=== PATIENT | female | born 1940 | race Caucasian/White ===

== ENCOUNTER 2020-11-12 12:44 | Inpatient (IN) | payer MEDICARE, MEDICAID, SELFPAY ==
[2020-11-12] VITALS (12 sets, daily range): BP systolic 148–156; BP diastolic 62–84; PULSE 63–89; RESP 16–32; TEMP 36.7–37.9; O2SAT 96–100; BMI 23.3
--- NOTE | 2020-11-12 13:24 | W.ED.FEMALGU ---
HPI - Female Genitourinary General: Chief complaint: Urogenital-Female Stated complaint: Abd pain Time Seen by Provider: 11/12/20 13:16 History of Present Illness: HPI Narrative: 80 year old female on chronic anticoagulation with coumadin in for vaginal bleeding or hematuria. The source is unclear. Was recently seen by PCP and today urine culture was negative. She had an INR >8.0. The patient does not have JAPANESE for her first language and initially family helps translate but language barrier exists. MD elicited complaint: UTI , vaginal bleeding and pelvic pain Pertinent past history: recurrent UTIs Severity: similar to previous episodes Vaginal discharge: none Vaginal bleeding: scant Associated symptoms: Reports abdominal pain; Deny short of breath, fevers/chills, headache(s), nausea, syncope or vaginal discharge Review of Systems Const: Denies: fever(s) or chills Card: Denies: chest pain, palpitations or syncope GI: Reports: abdominal pain; Denies: nausea : Reports: dysuria, hematuria, change in menstrual flow and pelvic pain; Denies: vaginal discharge Neuro: Denies: headache(s) Physical Exam Const: COMMON NORMALS: no acute distress, patient oriented x3, no limitations and alert ORIENTATION/CONSCIOUSNESS: Yes oriented to time HENMT: COMMON NORMALS: normocephalic HEAD & SCALP: normal to inspection and normocephalic Neck/C-Spine: COMMON NORMALS: full ROM GENERAL: Yes normal visual inspection Chest: COMMONS NORMALS: normal inspection of the chest CHEST: Yes abnormal inspection of the chest Resp: COMMON NORMALS: normal respiratory effort EFFORT & INSPECTION: Yes able to speak in complete sentences, Yes symmetric chest movement and No respiratory distress Cardio: COMMON NORMALS: regular rate, regular rhythm, S1 normal heart sound present and S2 normal heart sound present RATE: regular rate RHYTHM: regular rhythm HEART SOUNDS: S1 normal heart sound present and S2 normal heart sound present GI: INSPECTION: Yes normal to inspection AUSCULTATION: Yes normoactive bowel sounds Neuro: COMMON NORMALS: patient oriented x3 SENSORIUM/ORIENTATION: Yes alert and Yes oriented to time CRANIAL NERVES: Yes CN normal except as noted COORDINATION/BALANCE: [id number]-[id number] test normal SPEECH: speech normal GAIT: Yes Normal gait present SENSORY EXAM: Yes extremities COORDINATION: [id number] test normal Skin: COMMON NORMALS: no rashes or lesions noted GENERAL SKIN EXAM: no rashes or lesions noted RASHES: no rashes Course Vital Signs: Vital signs: Vital Signs Temperature 98.1 F 11/12/20 13:01 Pulse Rate 63 11/12/20 13:01 Respiratory Rate 32 H 11/12/20 15:04 Blood Pressure 150/80 11/12/20 13:01 Pulse Oximetry 97 11/12/20 15:04 MDM - Female MDM Narrative: Medical decision making narrative: 80-year-old female in with concerns of vaginal bleeding or hematuria. We'll try to get the language line on the phone to help us clarify some details in the history secondary to the language barrier. I did talk to her primary care physician he relates some helpful information. Will check blood count, INR and CT scan of her abdomen and pelvis and pelvic examination and cath UA. Patient has gross hematuria as well as abnormal CT scan showing mild diffuse thickening of the cecum measuring up to 7 mm colitis versus early neoplasm is in the differential. The patient's hemoglobin came back at 7 and her INR at 6. She'll be given some vitamin K and transfused and then we talked about admitting the patient to the hospital for further workup. Lab Data: Labs: Lab Results 11/12/20 11/12/20 11/12/20 Range/Units 14:26 14:26 14:26 WBC 6.5 (4.0-10.0) 10^3/ uL RBC 2.59 L (4.1-5.3) 10^6/u L Hgb 7.1 L (11.5-15.3) g/dL Hct 23.8 L (37.0-47.0) % MCV 91.9 (81-99) fL MCH 27.4 L (28.0-34.0) pg MCHC 29.8 L (30.0-36.0) g/dL RDW 17.3 H (12.1-15.1) % Plt Count 113 L (130-400) 10^3/c mm MPV 11.1 H (7.4-10.4) fL Neut % (Auto) 74.6 % Lymph % (Auto) 18.3 % [place] % (Auto) 6.3 % Eos % (Auto) 0.0 % Baso % (Auto) 0.2 % Neut # (Auto) 4.86 (1.8-7.7) 10^3/u L Lymph # (Auto) 1.2 (0.8-4.8) 10^3/u L [place] # (Auto) 0.4 (0.2-0.9) 10^3/u L Eos # (Auto) 0.0 (0.0-0.8) 10^3/u L Baso # (Auto) 0.0 (0.0-0.1) 10^3/u L Nucleated RBC % (a uto) 0 % Nucleated RBCs # 0.0 /100WBC PT 58.60 H (12.1-14.9) SECO NDS INR 6.36 H* (0.8-1.2) Sodium 141 (136-145) mmol/L Potassium 3.9 (3.5-5.1) mmol/L Chloride 109 H (98-107) mmol/L Carbon Dioxide 24 (22-29) mmol/L Anion Gap 11.9 (5-19) BUN 29 H (8-23) mg/dL Creatinine 0.9 (0.5-0.9) mg/dL GFR Calculation Not Reportable Glucose 135 H (65-115) mg/dL Calculated Osmolal ity 300 H (285-295) mOsm/k g Calcium 8.4 L (8.5-10.5) mg/dL Total Bilirubin 1.5 H (0.15-1.2) mg/dL AST 23 (0-32) U/L ALT 14 (0-33) U/L Alkaline Phosphata se 81 (35-105) IU/L Total Protein 6.9 (6.6-8.7) g/dL Albumin 2.6 L (3.5-5.2) g/dL Globulin 4.3 (1.3-4.6) g/dL Urine Color (Yellow) Urine Appearance (CLEAR) Urine pH Ur Specific Gravit y Urine Protein Urine Glucose (UA) Urine Ketones Urine Blood Urine Nitrate Urine Bilirubin Urine Urobilinogen Ur Leukocyte Siobhan ase Urine RBC (0-2) /hpf Urine WBC (0-5) /hpf Ur Squamous Epith Cells (0-5) /hpf Amorphous Sediment Urine Bacteria (NONE) /hpf 11/12/ Range/Units 14:28 WBC (4.0-10.0) 10^3/ uL RBC (4.1-5.3) 10^6/u L Hgb (11.5-15.3) g/dL Hct (37.0-47.0) % MCV (81-99) fL MCH (28.0-34.0) pg MCHC (30.0-36.0) g/dL RDW (12.1-15.1) % Plt Count (130-400) 10^3/c mm MPV (7.4-10.4) fL Neut % (Auto) % Lymph % (Auto) % [place] % (Auto) % Eos % (Auto) % Baso % (Auto) % Neut # (Auto) (1.8-7.7) 10^3/u L Lymph # (Auto) (0.8-4.8) 10^3/u L [place] # (Auto) (0.2-0.9) 10^3/u L Eos # (Auto) (0.0-0.8) 10^3/u L Baso # (Auto) (0.0-0.1) 10^3/u L Nucleated RBC % (a uto) % Nucleated RBCs # /100WBC PT (12.1-14.9) SECO NDS INR (0.8-1.2) Sodium (136-145) mmol/L Potassium (3.5-5.1) mmol/L Chloride (98-107) mmol/L Carbon Dioxide (22-29) mmol/L Anion Gap (5-19) BUN (8-23) mg/dL Creatinine (0.5-0.9) mg/dL GFR Calculation Glucose (65-115) mg/dL Calculated Osmolal ity (285-295) mOsm/k g Calcium (8.5-10.5) mg/dL Total Bilirubin (0.15-1.2) mg/dL AST (0-32) U/L ALT (0-33) U/L Alkaline Phosphata se (35-105) IU/L Total Protein (6.6-8.7) g/dL Albumin (3.5-5.2) g/dL Globulin (1.3-4.6) g/dL Urine Color Red (Yellow) Urine Appearance Bloody A (CLEAR) Urine pH Not Reportable Ur Specific Gravit y Not Reportable Urine Protein Not Reportable Urine Glucose (UA) Not Reportable Urine Ketones Not Reportable Urine Blood Not Reportable Urine Nitrate Not Reportable Urine Bilirubin Not Reportable Urine Urobilinogen Not Reportable Ur Leukocyte Siobhan ase Not Reportable Urine RBC Too numerous to c nt H (0-2) /hpf Urine WBC None (0-5) /hpf Ur Squamous Epith Cells None (0-5) /hpf Amorphous Sediment Not Reportable Urine Bacteria 1+ H (NONE) /hpf Discharge Plan Discharge Patient Disposition: Admitted As Inpatient Clinical Impression: Acute blood loss anemia, Colitis with rectal bleeding Condition: Stable Coding Level of Care Code ED Environmental Geologist for Chg Fwd Exam Comprehensive
--- NOTE | 2020-11-12 13:41 | CT_ITS ---
WS: [id number] CT ABDOMEN AND PELVIS WITH CONTRAST HISTORY: Vaginal bleeding TECHNIQUE: Imaging performed of the abdomen and pelvis with IV contrast. Single phase imaging of the abdomen. Coronal and sagittal reformats are submitted. All CT scans at [facility] use at least one of these dose optimization techniques: automated exposure control; mA and/or kV adjustment per patient size (includes targeted exams where dose is matched to clinical indication); or iterativ e reconstruction. IV CONTRAST: Omnipaque 300; 95 mL IV. Oral contrast: No DLP: 596.54 mGy.cm COMPARISON: None available. Lower thorax: Mild edema at the lung bases and dependent changes. Small bilateral pleural effusions. Severe cardiomegaly. There is marked enlargement of the LEFT atrium. No hiatal hernia. Liver/biliary system: Scattered hypodensities in the liver with the largest measuring 8 mm. Probably representing cysts. Gallbladder: Status post cholecystectomy. Pancreas: Normal. Spleen: Normal. Adrenal glands: Normal. Right kidney: Normal. Left kidney: Cortical thinning and mild atrophy of the LEFT kidney. No obstruction or mass. Aorta: Mild atherosclerosis with no aneurysm. Lymphadenopathy: None. Free fluid: None. GI tract: Diverticulosis in the distal colon with no evidence for acute diverticulitis. Mild cecal wa ll thickening measuring 7 mm. Abdominal wall: Unremarkable abdominal wall. No hernia. Pelvis: Atrophic uterus. Uterus is midline.. Minimally distended endometrium. Large dense calcifications in the urinary bladder measuring 2.4 x 1.9 cm. Bones: Severe degenerative disc disease at L4-5. CT/CT abdomen pelvis w con* [id number] IMPRESSION: 1. Atrophic uterus with no pelvic mass identified. 2. Large bladder calcifications in their entirety measuring 2.4 x 1.9 cm. 3. Sigmoid diverticulosis without acute diverticulitis. 4. Prior cholecystectomy. 5. Severe cardiomegaly and LEFT atrial enlargement. 6. Small bilateral pleural effusions. 7. Mild diffuse thickening of the cecum measuring up to 7 mm. Colitis versus e laya neoplasm. No obstruction.
[2020-11-12 14:54] LABS: Basophils % 0.2 %; Hematocrit 23.8 % (37.0-47.0); Hemoglobin 7.1 g/dL (11.5-15.3); Lymphocytes # 1.2 10^3/uL (0.8-4.8); Lymphocytes % 18.3 %; Mean Corpuscular HGB Conc 29.8 g/dL (30.0-36.0); Mean Corpuscular Hemoglobin 27.4 pg (28.0-34.0); Mean Corpuscular Volume 91.9 fL (81-99); Mean Platelet Volume 11.1 fL (7.4-10.4); Monocytes # 0.4 10^3/uL (0.2-0.9); Monocytes % 6.3 %; Neutrophils # 4.86 10^3/uL (1.8-7.7); Neutrophils % 74.6 %; Nucleated Red Blood Cells % 0 %; Platelet Count 113 10^3/cmm (130-400); Red Blood Count 2.59 10^6/uL (4.1-5.3); Red Cell Distribution Width 17.3 % (12.1-15.1); White Blood Count 6.5 10^3/uL (4.0-10.0)
[2020-11-12] MEDS: fentaNYL 50 mcg/mL INJ 2mL IVP (15:04)
[2020-11-12 15:10] LABS: Add Urine Microscopic? YES; Urine Appearance Bloody (CLEAR)
[2020-11-12 15:11] LABS: Alanine Aminotransferase 14 U/L (0-33); Albumin Level 2.6 g/dL (3.5-5.2); Alkaline Phosphatase 81 IU/L (35-105); Anion Gap 11.9 (5-19); Aspartate Amino Transferase 23 U/L (0-32); Blood Urea Nitrogen 29 mg/dL (8-23); Calcium 8.4 mg/dL (8.5-10.5); Carbon Dioxide 24 mmol/L (22-29); Chloride 109 mmol/L (98-107); Creatinine Clr Calc Pharmacy 47.6902; Globulin 4.3 g/dL (1.3-4.6); Glucose 135 mg/dL (65-115); Osmolality Calculated 300 mOsm/kg (285-295); Potassium 3.9 mmol/L (3.5-5.1); Sodium 141 mmol/L (136-145); Total Bilirubin 1.5 mg/dL (0.15-1.2); Total Protein 6.9 g/dL (6.6-8.7)
[2020-11-12 15:11] LABS: Add Urine Culture? Yes; Bacteria Urine 1+ /hpf; RBC Urine TOO NUMEROUS TO CNT /hpf (0-2); Urine Color Red (Yellow)
[2020-11-12] MEDS: iohexol 300 mg/mL 100 mL Btl IV (15:24)
[2020-11-12 15:28] LABS: INR 6.36 (0.8-1.2)
[2020-11-12] MEDS: piperacillin-tazobactam 3.375 GM in sodium chloride 0.9% (plus) 50 ML IV (19:23)
[2020-11-12] MEDS: phytonadione (ADULT) 10 mg/mL Ampule 1 mL 5 MG PO (19:24)
--- NOTE | 2020-11-12 19:39 | PM.HP ---
Providers/Chief Complaint Admitting Physician: Dionne Mosqueda MD Primary Care Provider: Lloyd Stanley DO Chief Complaint: Abd pain History of Present Illness Zonia Saab is a 80 year old [place]-speaking female presented to the hospital with chief complaint blood in urine. Sister is at the bedside who is endorsing that for last few days she has been experiencing a lot of blood in urine, history is limited because of language barrier I have tried my best to use phlebotomy lab assistant, sister is able to tell me that at baseline she is not very active she is not able to bear weight her legs are swollen no recent complaints of chest pain, vomiting, fever, shortness of breath, she takes Coumadin for atrial fibrillation, has history of diabetes and hypertension. Diagnostics in the ER revealed normal hemodynamics, supratherapeutic INR 6.3, hemoglobin 7.1, she was getting first unit of PRBC by the time I saw her I also requested 1 unit of FFP, she received vitamin K in the ER, she was hemodynamically stable, Kcentra was not used, urinalysis showing hematuria, CT abdomen revealed bilateral pleural effusion, cecum thickening colitis versus neoplasm without obstruction, diverticulosis, bladder calcifications 2.4 x 1.9 cm, scattered hypodensities in the liver Review of Systems Const: Denies: fever(s) Eyes: Denies: change in vision ENMT: Denies: throat pain Card: Denies: chest pain Resp: Denies: dyspnea GI: Denies: abdominal pain : Reports: other (Hematuria) Musc: Reports: extremity pain and extremity swelling Skin/Breast: Denies: rash Neuro: Denies: headache(s) Psych: Denies: anxiety Endo: Denies: polyuria Arjun/Lymph: Denies: easy bruising All/Imm: Denies: urticaria Medications/Allergies Home Medications Medication Instructions Recorded Confirmed Last Taken Type digoxin 125 mcg PO DAILY 11/12/20 11/12/20 11/11/20 History hydrochlorothiazide 50 mg PO DAILY PRN 11/12/20 11/12/20 Unknown History losartan 100 mg PO BID 11/12/20 11/12/20 11/11/20 History metformin 500 mg PO DAILY 11/12/20 11/12/20 11/11/20 History nitrofurantoin monohyd/m-cryst 100 mg PO BID 11/12/20 11/12/2020 History Allergies Allergy/AdvReac Type Severity Reaction Status Date / Time Cipro Allergy Unknown Uncoded 03/12/20 18:30 PFSH Acute PFSH: Medical History (Updated 11/12/20 @ 19:46 by Faith Soto MD) Atrial fibrillation Chronic anticoagulation Hypertension Type 2 diabetes mellitus Surgical History (Updated 11/12/20 @ 19:46 by Faith Soto MD) Hx of cholecystectomy Family History (Updated 11/12/20 @ 23:04 by Faith Soto MD) Other Family history non-contributory Social History (Updated 11/12/20 @ 23:04 by Faith Soto MD) Smoking and tobacco status: never smoked Alcohol intake: never Substance/Drug Use: never Household members: family Housing: House Vitals/I&O/Wt Last Vital Signs Temp 98.8 F 11/12/20 18:21 Pulse 74 11/12/20 18:21 Resp 18 11/12/20 18:21 BP 154/65 11/12/20 18:21 Pulse Ox 98 11/12/20 18:21 11/12/20 11/12/20 11/12/20 06:59 14:59 22:59 Intake Total 0 / 0 Balance 0 / 0 Weight last 48 hrs Weight 63.503 kg Physical Exam Narrative: EXAM NARRATIVE: Very flair elderly female currently in comfortably in her bed Blood transfusion at the bedside running, however vitals are stable S1, S2 variable no murmur appreciated No signs of heart failure Abdomen soft nontender bowel sound present Neurologically nonfocal exam EOMI, PERRLA Awake alert oriented x3 GCS 15 Lower extremity bilateral edema 2+ Multiple petechiae and bruises of lower extremities Bilateral breath sounds without adventitious rhonchi or crackles Limited psych evaluation Data : 11/12/20 14:26 11/12/20 14:26 A&P Assessment and plan (1) Acute blood loss anemia: Status: Acute (2) Colitis with rectal bleeding: Status: Acute (3) Hematuria: Status: Acute Additional A&P Information Acute blood loss anemia due to hematuria UA revealed hematuria, patient is hypertensive, would request protein/creatinine ratio, bladder calcification seen on CT abd Patient currently getting first unit of PRBc Considering supratherapeutic INR I highly doubt urgent cystoscopy indication, kindly consult Dr. Vidal in the morning Currently on Zosyn for possible colitis however cecal mass has not been ruled out, she will need colonoscopy, She will need histopathological diagnosis of bladder to rule out malignancy, liver showing multiple cysts as well Supratherapeutic INR Hold Coumadin, obtain digoxin level, I will give her 1 unit FFP to reverse coagulopathy because of hematuria, currently hemodynamically stable, hold off on Kcentra for now I have read out she will go for colonoscopy or cystoscopy with supratherapeutic INR, A. fib without RVR Hold Coumadin and digoxin Rate controlled Would use metoprolol if needed for RVR Hypertension: I would avoid adding losartan for now, hold hydrochlorothiazide Considering hematuria hemoglobin 7.1 I would be okay with a blood pressure range 100 4250 for now Type 2 diabetes: Low-dose sliding scale, Full code discussed with the patient and sister DVT prophylaxis SCDs Clear liquid diet for now Attestations Medical Necessity Statement*: Anticipating stay in the hospital cross more than 2 midnights continued blood transfusion for supratherapeutic INR coagulopathy and hematuria Time Spent in Patient Care: (>than 50% of time spent in counselling and/or direct pt care on unit). 40mins Coding Level of Care Code Acute Automatic Mounter for [employer] Fwdaisy Diagnoses Acute blood loss anemia D62 Colitis with rectal bleeding K52.9; K62.5 Hematuria R31.9
[2020-11-13] VITALS (12 sets, daily range): BP systolic 117–160; BP diastolic 60–77; PULSE 63–79; RESP 16–20; TEMP 36.3–37.4; O2SAT 94–99
[2020-11-13 00:06] LABS: Digoxin 1.4 ng/mL (0.6-1.2)
--- NOTE | 2020-11-13 01:51 | PC.NURSE ---
Assumed pt care at this time. Pt is resting in bed.
[2020-11-13] MEDS: piperacillin-tazobactam 3.375 GM in sodium chloride 0.9% (plus) 50 ML IV ×3 (04:28→20:01)
[2020-11-13 06:02] LABS: Basophils % 0.2 %; Eosinophils % 0.2 %; Hematocrit 24.4 % (37.0-47.0); Hemoglobin 7.5 g/dL (11.5-15.3); Lymphocytes # 1.2 10^3/uL (0.8-4.8); Lymphocytes % 19.1 %; Mean Corpuscular HGB Conc 30.7 g/dL (30.0-36.0); Mean Corpuscular Hemoglobin 27.5 pg (28.0-34.0); Mean Corpuscular Volume 89.4 fL (81-99); Mean Platelet Volume 10.3 fL (7.4-10.4); Monocytes # 0.4 10^3/uL (0.2-0.9); Monocytes % 6.2 %; Neutrophils # 4.77 10^3/uL (1.8-7.7); Neutrophils % 73.5 %; Nucleated Red Blood Cells % 0 %; Platelet Count 106 10^3/cmm (130-400); Red Blood Count 2.73 10^6/uL (4.1-5.3); Red Cell Distribution Width 16.6 % (12.1-15.1); White Blood Count 6.5 10^3/uL (4.0-10.0)
[2020-11-13 06:30] LABS: Anion Gap 14.6 (5-19); Blood Urea Nitrogen 23 mg/dL (8-23); Calcium 8.3 mg/dL (8.5-10.5); Carbon Dioxide 23 mmol/L (22-29); Chloride 109 mmol/L (98-107); Creatinine Clr Calc Pharmacy 47.6902; Glucose 110 mg/dL (65-115); Osmolality Calculated 300 mOsm/kg (285-295); Potassium 3.6 mmol/L (3.5-5.1); Sodium 143 mmol/L (136-145)
[2020-11-13 06:52] LABS: INR 1.92 (0.8-1.2)
--- NOTE | 2020-11-13 09:44 | XRR_ITS ---
PROCEDURE INFORMATION: Exam: XR Chest, 1 View Exam date and time: 11/13/2020 9:44 AM Age: 80 years old Clinical indication: Other: Low oxygen TECHNIQUE: Imaging protocol: XR of the chest Views: 1 view. COMPARISON: No relevant prior studies available. FINDINGS: Lungs: Emphysematous change , interstitial prominence, and bilateral lower lobe airspace disease. Pleural space: Left pleural effusion without obscuration of the left hemidiaphragm. Heart/Mediastinum: Cardiomegaly. Bones/joints: Degenerative change. XR/XR chest 1V portable [id number] IMPRESSION: 1. Emphysematous change , interstitial prominence, and bilateral lower lobe airspace disease. 2. Left pleural effusion without obscuration of the left hemidiaphragm.
[2020-11-13 10:32] LABS: Glucose Point of Care 221 mg/dL (70-110)
--- NOTE | 2020-11-13 11:00 | PM.PN ---
Subjective Subjective: Interval history: She states she is doing all right. She is currently on oxygen mask oxygen. Breathing is comfortable. Sister states she normally does not use supplemental oxygen at home. Sister states for hematuria on Tuesday her PCP prescribed her a course of antibiotic. Both deny that she has ever had a colonoscopy. We discussed colonic thickening found on CT. Her sister reports patient has had issues with swallowing, takes her long time to swallow water, she holds it in her mouth for a while before swallowing. 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 Vitals/I&O/Wt Last Vital Signs Temp 98.3 F 11/13/20 07:15 Pulse 68 11/13/20 07:15 Resp 20 H 11/13/20 07:15 BP 144/69 11/13/20 07:15 Pulse Ox 96 11/13/20 06:15 11/12/20 11/13/20 11/13/20 22:59 06:59 14:59 Intake Total 350 / 350 366 / 716 350 / 350 Output Total 100 / 100 Balance 350 / 350 266 / 616 350 / 350 Weight last 48 hrs Weight 63.503 kg Physical Exam Const: COMMON NORMALS: no acute distress and patient oriented x3 HENMT: COMMON NORMALS: oropharynx normal Neck/C-Spine: COMMON NORMALS: no JVD Resp: COMMON NORMALS: normal respiratory effort and clear to auscultation bilaterally AUSCULTATION: clear to auscultation bilaterally Cardio: COMMON NORMALS: no JVD, regular rhythm, S1 normal heart sound present, S2 normal heart sound present and No murmurs present (Cardio) RHYTHM: regular rhythm HEART SOUNDS: S1 normal heart sound present and S2 normal heart sound present GI: COMMON NORMALS: Normal to inspection, nondistended, normoactive bowel sounds present, Soft to palpation and non-tender PALPATION: Yes Soft to palpation Extremity: COMMON NORMALS: no joint enlargement and no pedal edema Neuro: COMMON NORMALS: patient oriented x3 and moves all extremities Skin: COMMON NORMALS: no rashes or lesions noted GENERAL SKIN EXAM: no rashes or lesions noted Urinary Catheter Management^: [place]: Cath Placed During This Visit: yes Reason for Continuing Indwelling Catheter: Other Urinary Catheter Date of Insertion: 11/13/20 Urinary Catheter Time of Insertion: 02:35 Data : 11/13/20 05:02 11/13/20 05:02 A&P Assessment and plan (1) Aspiration pneumonia: Reportedly choked after eating breakfast this morning. Hypoxic. Requiring 8 L of oxygen, currently with simple mask. Not normally using supplemental oxygen. Discussed with her and her sister findings of chest x-ray including appearance of emphysema. She is a never smoker. She does have recurrent difficulties with swallowing for sister however since she has had a stroke. Currently on Zosyn. Continue. ST assessment. Aspiration precautions. Status: Acute (2) Acute respiratory failure with hypoxia: As above. Status: Acute (3) Acute blood loss anemia: Status post 2 units PRBC. Hypoxic as above. 20 mg Lasix IV. Monitor hemoglobin. Coumadin on hold. Anemia with hematuria, possible cystitis for which he was prescribed antibiotic by PCP on Tuesday. Status: Acute (4) Colitis with rectal bleeding: Hemoccult had been requested. Discussed findings of CT scan with thickening of cecum. Currently on Zosyn. Will need colonoscopy after empiric treatment for possible colitis. Status: Acute (5) Hematuria: Possible cystitis for which he was prescribed antibiotic by PCP on Tuesday. Will request UA and culture results. Continue Zosyn. Hematuria currently appears mostly resolved, and likely was related to cystitis and elevated INR. Consider urological evaluation once issues with hypoxia resolve. Status: Acute (6) Cardiomegaly: Assess TTE Status: Acute Additional A&P Information A. fib without RVR Hold Coumadin and digoxin. Recheck INR. Dig level. Hypertension: I would avoid adding losartan for now, hold hydrochlorothiazide Type 2 diabetes: Low-dose sliding scale, Full code DVT prophylaxis SCDs Attestations Medical Necessity Statement*: Continue admission for assessment management of acute hypoxic respiratory failure, aspiration pneumonia, acute blood loss anemia. Coding Level of Care Code Acute Management Consulting for [facility] Fwd Diagnoses Aspiration pneumonia J69.0 Acute respiratory failure with hypoxia J96.01 Acute blood loss anemia D62 Colitis with rectal bleeding K52.9; K62.5 Hematuria R31.9 Cardiomegaly I51.7
--- NOTE | 2020-11-13 11:06 | USCV_ITS ---
Zonia Saab Age: 80 Gender: F : 1940 Exam Date: 11/13/2020 11:26 Ordering Phys: Elie Olson MD Technologist: Sharron Mixon Exam Location: [facility] [place] Indication: CARDIOMEGALY BP: / HR: 69 Rhythm: Other Technical Quality: Adequate MEASUREMENTS (Male / Female) Normal Values 2D ECHO LV Diastolic Diameter PLAX 4.8 cm 4.2 - 5.9 / 3.9 - 5.3 cm LV Systolic Diameter PLAX 2.4 cm LV Chamber Size 3.9 cm IVS Diastolic Thickness 1.0 cm 0.6 - 1.0 / 0.6 - 0.9 cm IVS Systolic Thickness 1.3 cm LVPW Diastolic Thickness 1.3 cm 0.6 - 1.0 / 0.6 - 0.9 cm LVPW Systolic Thickness 1.7 cm RV Chamber Size 2.2 cm LVOT Diameter 2.0 cm LV Ejection Fraction 2D Teich 80.6 % LA Diameter 4.0 cm LA Width 6.4 cm LA Height 8.7 cm RA Width 2.1 cm RA Height 7.3 cm Aorta at Sinotubular Diameter 3.0 cm M-MODE LV Diastolic Diameter MM 4.1 cm 4.2 - 5.9 / 3.9 - 5.3 cm LV Systolic Diameter MM 2.5 cm LV Ejection Fraction MM Teich 70.0 % IVS Diastolic Thickness MM 1.1 cm 0.6 - 1.0 / 0.6 - 0.9 cm IVS Systolic Thickness MM 1.6 cm LVPW Diastolic Thickness MM 1.4 cm 0.6 - 1.0 / 0.6 - 0.9 cm LVPW Systolic Thickness MM 1.8 cm RV Diastolic Diameter MM 1.8 cm Aortic Annulus Diameter 3.1 cm LA Ao Ratio MM 1.7 MV E Point Septal Separation 0.4 cm DOPPLER AV Peak Velocity 171.0 cm/s LVOT Peak Velocity 106.0 cm/s AV Area Cont Eq vti 2.2 cm squared AV Area Cont Eq pk 1.9 cm squared MV Peak Velocity 253.0 cm/s MV Area PHT 1.0 cm squared Mitral E to A Ratio 248.2 MV E' Velocity 163.0 cm/s Mitral E to MV E' Ratio 6.6 Mitral E to LV E' Lateral Ratio 5.2 Mitral E to LV E' Septal Ratio 9.2 TR Peak Velocity 359.2 cm/s TR Peak Gradient 51.6 mmHg TR Mean Velocity 255.1 cm/s TR Mean Gradient 31.1 mmHg TR Velocity Time Integral 86.5 cm TV Peak E Velocity 59.0 cm/s Right Atrial Pressure 15.0 mmHg Pulmonary Artery Systolic Pressu 66.6 mmHg PV Peak Velocity 93.0 cm/s RV Acceleration Time 0.1 s RV Ejection Time 0.4 s RV AcT/ET 0.2 FINDINGS Left Ventricle Normal left ventricular size and systolic function with no regional wall motion abnormalities. LVEF is 55 to 60%. Diastolic function is indeterminate. Right Ventricle The right ventricle is grossly normal. Right Atrium The right atrium is normal in size. Left Atrium Left atrium is massively enlarged. 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 Mitral valve leaflets are heavily calcified. There is severe mitral stenosis with mitral valve area of 0.97 cm squared. Mean pressure gradient of 9 mmHg with peak gradient of 29 mmHg. There is mild to moderate mitral regurgitation also present. There is a small fluttering structure attached to the anterior mitral leaflet. This could be artifact/calcium or less likely vegetation. Clinical correlation is required. Aortic Valve Grossly normal. No evidence of significant aortic stenosis or regurgitation. Tricuspid Valve Grossly normal. Mild tricuspid regurgitation. RVSP is 65 mmHg. This is consistent with severe pulmonary hypertension. Severe elevation of right atrial pressure. RA pressure is 15 mmHg. Pulmonic Valve Not well-visualized. Status mild pulmonic regurgitation noted. Pericardium Normal pericardium without effusion. Aorta Normal ascending aorta dimension. CONCLUSIONS LV systolic function is normal with EF of 55 to 60%. Diastolic function is indeterminate. Left atrium is massively enlarged. 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 Heavily calcified leaflets. Severe mitral stenosis with mitral valve area of 0.97 cm squared is noted. Mean gradient across mitral valve is 9 mmHg. There is mild to moderate mitral regurgitation. There is a small fluttering structure attached to anterior mitral leaflet this could be artifact/calcium or less likely vegetation. Clinical correlation is required. Transesophageal echocardiogram can be performed further assess mitral valve. Severe pulmonary hypertension is present. Severely elevated RA pressure of 15 mmHg. Compared to prior echocardiogram from 04/30/2014, severe pulmonary hypertension is now present. Harvey Quintero MD (Electronically Signed) Final Date: 13 November 2020 17:45 S
[2020-11-13 11:10] LABS: Glucose Point of Care 119 mg/dL (70-110)
[2020-11-13 11:14] LABS: Glucose Point of Care 220 mg/dL (70-110)
[2020-11-13] MEDS: sodium chloride 0.9% (100 ml) 100 ML 125 ML (11:27)
[2020-11-13] MEDS: FUROsemide 10 mg/mL SDV 2mL 20 MG IVP (11:27)
[2020-11-13 18:32] LABS: Glucose Point of Care 133 mg/dL (70-110)
[2020-11-13] MEDS: morphine 4 mg/mL SDV 1 mL 2 MG IVP (22:08)
[2020-11-13 22:20] LABS: Glucose Point of Care 179 mg/dL (70-110)
[2020-11-14] VITALS (9 sets, daily range): BP systolic 114–177; BP diastolic 65–83; PULSE 58–91; RESP 18–40; TEMP 36.3–37.9; O2SAT 92–96
[2020-11-14 05:01] LABS: Basophils % 0.2 %; Hemoglobin 8.6 g/dL (11.5-15.3); Lymphocytes # 1.7 10^3/uL (0.8-4.8); Mean Corpuscular HGB Conc 30.7 g/dL (30.0-36.0); Mean Corpuscular Hemoglobin 27.5 pg (28.0-34.0); Mean Corpuscular Volume 89.5 fL (81-99); Mean Platelet Volume 10.5 fL (7.4-10.4); Monocytes # 0.4 10^3/uL (0.2-0.9); Monocytes % 4.9 %; Neutrophils # 6.55 10^3/uL (1.8-7.7); Neutrophils % 75.1 %; Nucleated Red Blood Cells % 0 %; Platelet Count 104 10^3/cmm (130-400); Red Blood Count 3.13 10^6/uL (4.1-5.3); Red Cell Distribution Width 17.5 % (12.1-15.1); White Blood Count 8.7 10^3/uL (4.0-10.0)
[2020-11-14 05:18] LABS: INR 1.39 (0.8-1.2)
[2020-11-14 05:34] LABS: Digoxin 0.9 ng/mL (0.6-1.2)
[2020-11-14 05:38] LABS: Alanine Aminotransferase 12 U/L (0-33); Albumin Level 2.4 g/dL (3.5-5.2); Alkaline Phosphatase 107 IU/L (35-105); Anion Gap 13.5 (5-19); Aspartate Amino Transferase 25 U/L (0-32); Blood Urea Nitrogen 25 mg/dL (8-23); Calcium 8.3 mg/dL (8.5-10.5); Carbon Dioxide 23 mmol/L (22-29); Chloride 113 mmol/L (98-107); Globulin 4.4 g/dL (1.3-4.6); Glucose 114 mg/dL (65-115); Osmolality Calculated 307 mOsm/kg (285-295); Potassium 3.5 mmol/L (3.5-5.1); Sodium 146 mmol/L (136-145); Total Protein 6.8 g/dL (6.6-8.7)
[2020-11-14] MEDS: piperacillin-tazobactam 3.375 GM in sodium chloride 0.9% (plus) 50 ML IV ×3 (05:44→18:57)
[2020-11-14 06:56] LABS: Glucose Point of Care 122 mg/dL (70-110)
[2020-11-14 12:01] LABS: Glucose Point of Care 209 mg/dL (70-110)
[2020-11-14] MEDS: bisacodyl 10 mg Supp PR (15:20)
[2020-11-14 17:15] LABS: Glucose Point of Care 164 mg/dL (70-110)
[2020-11-14] MEDS: polyethylene glycol 3350 Pkt 17 gm PO (17:57)
--- NOTE | 2020-11-14 18:13 | PM.PN ---
Subjective Subjective: Interval history: She is doing okay. Appetite seems to be doing all right. She has been having constipation. Denies abdominal pain. Breathing is comfortable with supplemental oxygen. Worked with speech therapy yesterday. This morning there is some return of hematuria. Vitals/I&O/Wt Last Vital Signs Temp 97.8 F 11/14/20 15:19 Pulse 61 11/14/20 16:53 Resp 18 11/14/20 15:19 BP 134/83 11/14/20 15:19 Pulse Ox 96 11/14/20 16:53 11/14/20 11/14/20 11/14/20 06:59 14:59 22:59 Intake Total 80 / 766 170 / 170 50 / 220 Output Total 150 / 850 Balance -70 / -84 170 / 170 50 / 220 Physical Exam Const: COMMON NORMALS: no acute distress ORIENTATION/CONSCIOUSNESS: Yes awake OTHER: Appears tired. HENMT: COMMON NORMALS: oropharynx normal Neck/C-Spine: COMMON NORMALS: no JVD Resp: COMMON NORMALS: normal respiratory effort and clear to auscultation bilaterally AUSCULTATION: clear to auscultation bilaterally and diminished lung sounds Cardio: COMMON NORMALS: no JVD, regular rhythm, S1 normal heart sound present, S2 normal heart sound present and No murmurs present (Cardio) RHYTHM: regular rhythm HEART SOUNDS: S1 normal heart sound present and S2 normal heart sound present GI: COMMON NORMALS: Normal to inspection, nondistended, normoactive bowel sounds present, Soft to palpation and non-tender PALPATION: Yes Soft to palpation Extremity: COMMON NORMALS: no joint enlargement and no pedal edema Neuro: COMMON NORMALS: moves all extremities Skin: COMMON NORMALS: no rashes or lesions noted GENERAL SKIN EXAM: no rashes or lesions noted Urinary Catheter Management^: Alegria: Cath Placed During This Visit: yes Reason for Continuing Indwelling Catheter: Accurate Measurement of Urinary Output in Critically Ill Patients Urinary Catheter Date of Insertion: 11/13/20 Urinary Catheter Time of Insertion: 02:35 Data : 11/14/20 04:43 11/14/20 04:43 Micro: Microbiology 11/14/20 10:27 Blood Culture - Preliminary Blood SPECIMEN COLLECTED 11/14/20 10:23 Blood Culture - Preliminary Blood SPECIMEN COLLECTED 11/12/20 14:28 Urine Culture - Final Urine,Clean Catch A&P Assessment and plan (1) Aspiration pneumonia: Oxygen requirement appears stabilized. Little bit better today at 4.5 L from 8 L yesterday. She is comfortable. Ate today. Was seen by ST with recommendation for dysphagia diet with pudding consistency liquid. Unfortunately MBS has not been available. FEES with limited study. Noted quite a bit of pooling in the valleculae. Is at risk of aspiration. Consider MBS once study is available. Discussed in detail with her and her daughter risk of aspiration. As well as suspicion of recurrent aspiration in the past, possibly leading to findings of chronic lung disease/emphysema. Discussed with her and her sister findings of chest x-ray including appearance of emphysema. She is a never smoker. She does have recurrent difficulties with swallowing for sister however since she has had a stroke. Currently on Zosyn. Continue. Continue ST. Aspiration precautions. Status: Acute (2) Acute respiratory failure with hypoxia: As above. Status: Acute (3) Hematuria: There is some return of hematuria this morning, despite decrease in INR. Hold off on resuming warfarin for now. Discussed manual irrigation with nursing staff. Monitor. Continue treatment of possible UTI/cystitis. Continue Zosyn. Consider urological evaluation once issues with hypoxia resolve. Status: Acute (4) Acute blood loss anemia: Status post 2 units PRBC on presentation. Monitor hemoglobin. Hematuria as above. Monitor hemoglobin. Coumadin on hold. Anemia with hematuria, possible cystitis for which he was prescribed antibiotic by PCP on Tuesday. Status: Acute (5) Colitis with rectal bleeding: Hemoccult had been requested. Remains on collected due to constipation. Discussed findings of CT scan with thickening of cecum. Currently on Zosyn. Will need colonoscopy after empiric treatment for possible colitis to also rule out malignancy. Status: Acute (6) Abnormality of heart valve: Incidentally noted small fluttering mitral valve structure attached to anterior mitral leaflet could be artifact/calcification or less likely vegetation. She has not been septic. Blood cultures collected. Suspicion for active vegetation is rather low. Could be closer assessed by LUZ MARIA in addition to other valvular abnormalities. Unclear whether this may have had any relation to her prior CVA. 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 Severe mitral stenosis noted with valve area 0.97 cm. Mean gradient 9 mmHg. Patient sister states patient previously was firm she would not want any major surgery. She is not sure about something like valvuloplasty for mitral valve stenosis. This may be evaluated more closely once acute issues with hypoxia, pneumonia, aspiration may be sorted. Status: Acute (8) Mitral regurgitation: Mild to moderate Status: Acute (9) Pulmonary hypertension: Likely cardiogenic secondary to above abnormalities, although does have also noted emphysema. Status: Acute (10) Cardiomegaly: Quite significant left atrial enlargement noted on TTE. Status: Acute Additional A&P Information A. fib without RVR Hold Coumadin and digoxin. Dig level back to therapeutic range. Will resume digoxin with every other day dosing. Hypertension: I would avoid adding losartan for now, hold hydrochlorothiazide Type 2 diabetes: Low-dose sliding scale, Constipation: Added bowel regimen Full code DVT prophylaxis SCDs Attestations Medical Necessity Statement*: Continue admission for assessment of management of hypoxic respiratory failure, aspiration pneumonia, closer assessment management of dysphagia, hematuria, possible colitis, possible cecal neoplasm, with noted severe mitral valve stenosis, unidentified mitral valve structure, and additional comorbidities as above. Coding Level of Care Code Acute Manager Protein for g Fwd Diagnoses Aspiration pneumonia J69.0 Acute respiratory failure with hypoxia J96.01 Hematuria R31.9 Acute blood loss anemia D62 Colitis with rectal bleeding K52.9; K62.5 Abnormality of heart valve Q24.8 Mitral stenosis I05.0 Mitral regurgitation I34.0 Pulmonary hypertension I27.20 Cardiomegaly I51.7
--- NOTE | 2020-11-14 19:02 | PC.NURSE ---
Mannually irrigated reyes for blood clots. Pale pink urine returned with one clot extracted. Patient tolerated well. Urine drainage remains dark red in bag but pale pink in tube.
--- NOTE | 2020-11-14 20:10 | XRR_ITS ---
PROCEDURE INFORMATION: Exam: XR Chest, 1 View Exam date and time: 11/14/2020 8:50 PM Age: 80 years old Clinical indication: Dyspnea; Additional info: Dyspnea/cough TECHNIQUE: Imaging protocol: XR of the chest Views: 1 view. COMPARISON: CR XR chest 1V portable [id number] 11/13/2020 9:50 AM FINDINGS: Lungs: Dense ground-glass opacities have worsened in the right lung base and are unchanged in the left lung base. Pleural space: Stable left pleural effusion. No pneumothorax. Heart/Mediastinum: Unremarkable. No cardiomegaly. Bones/joints: Unremarkable. XR/XR chest 1V portable [id number] IMPRESSION: 1. Bibasilar pneumonia versus aspiration, worsened on the right. 2. Stable left pleural effusion.
[2020-11-14 20:21] LABS: ABG PH Result 7.21 (7.35-7.45); Alveolar-Arterial Oxygen Gradi 79.2 mmHg (5-10); Arterial Blood Gas Hematocrit 33.4 % (37-47); Base Excess ABG -2.7 mmol/L (-2.0-2.0); Blood Gas Sample Site Radial, left; Blood Gas Sample Type Arterial; Carboxyhemoglobin 1.3 %THgb (0.4-20.1); HGB O2 Sat 48.7 % (95-100); Ionized Calcium Level - ABG 1.2 mmol/L (1.1-1.4); Methemoglobin 0.9 % (0.4-1.5); Oxygen Device NRB; Oxygen Saturation ABG 49.8; PO2 ABG 31.4 mmHg (80.0-100.0); Potassium Level - ABG 3.4 mmol/L (3.5-5.0); Total Hemoglobin 10.9 g/dL (12-16)
[2020-11-14 20:22] LABS: ABG PCO2 65.3 mmHg (35-45)
[2020-11-14] MEDS: FUROsemide 10 mg/mL SDV 4mL 40 MG IVP (20:23)
[2020-11-14 20:58] LABS: Glucose Point of Care 185 mg/dL (70-110)
[2020-11-14] MEDS: morphine 4 mg/mL SDV 1 mL 2 MG IVP (21:20)
--- NOTE | 2020-11-14 22:50 | PC.NURSE ---
Rapid Response Upon shift exchange, patient's pulse ox off finger. Placed back on finger and oxygen saturation 80%. Increased oxygen to 6L, no change in O2 sat. Changed to oxy mask and increased up to 15L with no change. Called RT who was in ER and asked that I place patient on non-rebreather. This was done and asked for HCRISSY Lo to come to room with patient. Recommendation to call rapid as patient not improving, having very labored breathing. Dr. Soto to bedside who ordered blood gas, stat CXR, and 40mg IV lasix. All completed and lasix given. RT Antoni placed patient on bipap. Dr. Soto discussed code status with patient's sister at bedside, decision was made to make patient a DNR.
[2020-11-15] VITALS (13 sets, daily range): BP systolic 126–176; BP diastolic 71–101; PULSE 67–95; RESP 16–36; TEMP 36.2–37.3; O2SAT 89–100
--- NOTE | 2020-11-15 02:20 | PM.EVENT ---
Event Note Event Note: I was called to evaluate the patient for increased work of breathing When I went in the room patient was awake but looked very lethargic and somnolent respiratory rate 28-30, she was put on 15 L nonrebreather mask, O2 saturation 88 to 90% Sister is at the bedside With the help of sister I asked goals of care Sister is adamant that she does not want chest compression or ventilators which she discussed with Zonia Patient was drowsy but able to follow my verbal commands Increased work of breathing S1, S2 no active sign of heart failure Bilateral breath sounds with crackles and expiratory wheezing No signs of stroke Lower extremity no edema gangrene or ulcer Hematuria Stat ABG revealed hypercapnic respiratory failure Glucose 179 : Most likely fluid overload from blood transfusion, will give 40 IV Lasix kept her on BiPAP which improved her saturation and decreased work of breathing, after discussing goals of care decision was made to keep her in same room and not transport her to ICU Stat chest x-ray revealed worsening of pleural effusion vascular congestion right middle lobe greater than left Would request BNP, procalcitonin level, start her on levaquin for possible aspiration pneumonia, continue BiPAP
[2020-11-15] MEDS: FUROsemide 10 mg/mL SDV 2mL 20 MG IVP (03:15)
[2020-11-15] MEDS: piperacillin-tazobactam 3.375 GM in sodium chloride 0.9% (plus) 50 ML IV ×3 (03:15→20:23)
[2020-11-15 05:20] LABS: ABG PCO2 40.4 mmHg (35-45); Arterial Blood Gas Hematocrit 25.7 % (37-47); Base Excess ABG 0.1 mmol/L (-2.0-2.0); Blood Gas Allen Test Pos; Blood Gas Sample Type Arterial; HCO3 ABG 24.9 mmol/L (22-26); PO2 ABG 94.4 mmHg (80.0-100.0)
[2020-11-15 05:21] LABS: Blood Gas Sample Site Radial, right; Oxygen Device BIPAP
[2020-11-15 05:34] LABS: Basophils % 0.2 %; Hematocrit 29.6 % (37.0-47.0); Hemoglobin 8.9 g/dL (11.5-15.3); Lymphocytes # 2.2 10^3/uL (0.8-4.8); Lymphocytes % 18.4 %; Mean Corpuscular HGB Conc 30.1 g/dL (30.0-36.0); Mean Corpuscular Hemoglobin 27.3 pg (28.0-34.0); Mean Corpuscular Volume 90.8 fL (81-99); Mean Platelet Volume 10.3 fL (7.4-10.4); Monocytes # 0.5 10^3/uL (0.2-0.9); Monocytes % 3.9 %; Neutrophils % 76.4 %; Nucleated Red Blood Cells % 0 %; Platelet Count 110 10^3/cmm (130-400); Red Blood Count 3.26 10^6/uL (4.1-5.3); Red Cell Distribution Width 17.9 % (12.1-15.1)
[2020-11-15 05:53] LABS: INR 1.34 (0.8-1.2)
[2020-11-15 06:11] LABS: Alanine Aminotransferase 16 U/L (0-33); Albumin Level 2.6 g/dL (3.5-5.2); Alkaline Phosphatase 121 IU/L (35-105); Anion Gap 16.4 (5-19); Aspartate Amino Transferase 26 U/L (0-32); Blood Urea Nitrogen 31 mg/dL (8-23); Calcium 8.4 mg/dL (8.5-10.5); Carbon Dioxide 24 mmol/L (22-29); Chloride 113 mmol/L (98-107); Globulin 4.6 g/dL (1.3-4.6); Glucose 130 mg/dL (65-115); Osmolality Calculated 318 mOsm/kg (285-295); Potassium 3.4 mmol/L (3.5-5.1); Sodium 150 mmol/L (136-145); Total Bilirubin 1.9 mg/dL (0.15-1.2); Total Protein 7.2 g/dL (6.6-8.7)
--- NOTE | 2020-11-15 06:26 | PC.NURSE ---
Shift Summary Since previous note, patient has rested well on bipap. Oxygen has been weaned down. Reyes draining light pink urine in the tubing, appears more red in reyes bag. Draining well. Patient had results after her suppository and miralax given yesterday.
[2020-11-15 06:56] LABS: Glucose Point of Care 111 mg/dL (70-110)
--- NOTE | 2020-11-15 08:20 | USR_ITS ---
PROCEDURE INFORMATION: Exam: US Abdomen, Limited; Right Upper Quadrant Exam date and time: 11/15/2020 8:55 AM Age: 80 years old Clinical indication: Abnormal findings; Abnormal lab test; Elevated liver enzymes and other: Elevated t. Biliruben; Patient HX: S/P cholecystectomy (per chart. Unclear when); Additional info: Live, cbd - elevated tbili, ap TECHNIQUE: Imaging protocol: US abdomen. Real time ultrasound with image documentation. Limited exam focused on the right upper quadrant. COMPARISON: CT abdomen pelvis w con* [id number] 11/12/2020 3:14 PM FINDINGS: Pleural space: Right pleural effusion. Liver: 8 and 9 mm hepatic cysts. Gallbladder: Status post cholecystectomy. Common bile duct: normal caliber of the visualized common bile duct measuring 5 mm in maximum diameter. Pancreas: No acute sonographic abnormality in the incompletely visualized pancreas which is partially obscured by bowel gas. Right kidney: CT detected 3 mm right renal calculus is not visualized on the ultrasound images obtained. Aorta: No aneurysm in the visualized abdominal aorta. Inferior vena cava: Unremarkable IVC. US/US abdomen limited [id number] IMPRESSION: 1. Right pleural effusion. 2. Additional findings as described above.
[2020-11-15 08:38] LABS: NT Pro B Type Natriuretic Pept 10204 pg/mL (0-450)
[2020-11-15] MEDS: dextrose 5% 1,000 ML 30 ML IV (09:02)
[2020-11-15] MEDS: potassium chloride ER 20 mEq Tablet PO (09:07)
[2020-11-15] MEDS: lidocaine 1% 5 ML in potassium chloride premix 100 ML 50 ML IV (09:09)
[2020-11-15 10:14] LABS: Lactate Dehydrogenase 293 U/L (135-214)
[2020-11-15 10:44] LABS: Glucose Point of Care 119 mg/dL (70-110)
--- NOTE | 2020-11-15 10:46 | DCPLANNER ---
IMM completed with pt on 11/15/2020 @ 5830. Copy of rights given to pt.
--- NOTE | 2020-11-15 14:55 | PC.RESP ---
decreased o2 to 5 lpm at this time.
[2020-11-15] MEDS: bisacodyl 10 mg Supp PR (16:06)
[2020-11-15 20:27] LABS: Glucose Point of Care 146 mg/dL (70-110)
--- NOTE | 2020-11-15 21:19 | PM.PN ---
Subjective Subjective: Interval history: She is feeling little bit better this morning. Had a rough night with low oxygen which appears to be little better in the morning. Denies chest pain. Her sister is present concerned that she has not been eating. We had made her n.p.o. after significant worsening of hypoxia last night. Her sister does say that she ate quite well yesterday at dinner. Sister states that overnight had some nasotracheal suctioning. States that she has been having difficult time coughing up secretions. Vitals/I&O/Wt Last Vital Signs Temp 97.2 F L 11/15/20 19:26 Pulse 95 11/15/20 19:26 Resp 16 11/15/20 19:26 BP 176/101 11/15/20 19: Pulse Ox 92 11/15/20 19:26 11/15/20 11/15/20 11/15/20 06:59 14:59 22:59 Intake Total 50 / 50 50 / 100 Output Total 550 / 550 400 / 400 200 / 600 Balance -550 / -160 -350 / -350 -150 / -500 Physical Exam Const: COMMON NORMALS: no acute distress ORIENTATION/CONSCIOUSNESS: Yes awake OTHER: Appears generally weak. She is awake, alert, answers questions. Follows commands. HENMT: COMMON NORMALS: oropharynx normal Neck/C-Spine: COMMON NORMALS: no JVD Resp: COMMON NORMALS: normal respiratory effort AUSCULTATION: rhonchi Cardio: COMMON NORMALS: no JVD, regular rhythm, S1 normal heart sound present, S2 normal heart sound present and No murmurs present (Cardio) RHYTHM: regular rhythm HEART SOUNDS: S1 normal heart sound present and S2 normal heart sound present GI: COMMON NORMALS: Normal to inspection, nondistended, normoactive bowel sounds present, Soft to palpation and non-tender PALPATION: Yes Soft to palpation Extremity: COMMON NORMALS: no joint enlargement and no pedal edema Neuro: COMMON NORMALS: moves all extremities Skin: COMMON NORMALS: no rashes or lesions noted GENERAL SKIN EXAM: no rashes or lesions noted Urinary Catheter Management^: Alegria: Cath Placed During This Visit: yes Reason for Continuing Indwelling Catheter: Accurate Measurement of Urinary Output in Critically Ill Patients Urinary Catheter Date of Insertion: 11/13/20 Urinary Catheter Time of Insertion: 02:35 Data : 11/15/20 05:07 11/15/20 05:07 Micro: Microbiology 11/14/20 10:27 Blood Culture - Preliminary Blood NEGATIVE TO DATE 11/14/20 10:23 Blood Culture - Preliminary Blood NEGATIVE TO DATE 11/14/20 19:17 Occult Blood (FIT) - Final Stool Routine Collection A&P Assessment and plan (1) Aspiration pneumonia: Last night with worsening of hypoxia. Received a few doses of Lasix. Chest x-ray showing worsening infiltrate in right lower lobe. Discussed with her and her sister concern that after or during dinner she had yesterday she had some point aspirated again. Sister states she has been having difficult time coughing and bringing up secretions. She did get nasotracheal suctioning overnight. Discussed with her sister unfortunately her prognosis does not look good. Concern is that she is not able to adequately protect her airway. Sister has been asking about food and drink, however, they are agreeable at this time to continue n.p.o. due to persistent risk of aspiration. If her oxygenation stabilizes somewhat, and if we are able to obtain modified barium swallow evaluation, this may help us determine if there is a safe level of diet, although so far. She has not done well even with pudding thick liquids with dysphagia diet. Discussed with her and her sister if she does not improve regarding options with consideration given to PEG tube and tracheostomy, versus pleasure feeds. Certainly dysphagia has progressed since her last CVA. Unclear whether there may have been additional CVA versus progression with weakness associated with general medical condition. Sister understands that she is certainly at continuous risk of CVA due to mobile mass on mitral valve, but also atrial fibrillation, currently off anticoagulation. Discussed with her sister that she is at very high risk of decompensation and further decline with potentially fatal outcome. Sister states she understands. They are agreeable at this time to continue treatment of aspiration pneumonia, oxygen support. N.p.o. for now. Gentle IV hydration for hypernatremia. Aggressive pulmonary toilet. We will add flutter valve. Incentive spirometer. Continue speech therapy. Overnight her CODE STATUS was changed to AND. Also noted elevated BNP, however, this is suspected likely due to significant valvular abnormality. For now hold off additional diuretic, reassess volume status with diuretic as needed. MBS has not been available due to holiday. FEES was performed with limited study. Noted quite a bit of pooling in the valleculae. Is at risk of aspiration. Consider MBS once study is available. Suspicion of recurrent aspiration in the past, possibly leading to findings of chronic lung disease/emphysema. She is a never smoker. She does have recurrent difficulties with swallowing for sister however since she has had a stroke. Continue Zosyn. Status: Acute (2) Acute respiratory failure with hypoxia: As above. Status: Acute (3) Hematuria: Some fluctuation in hematuria. Currently better. Hold off on resuming warfarin for now. Discussed manual irrigation with nursing staff. Monitor. Continue treatment of possible UTI/cystitis. Continue Zosyn. Consider urological evaluation once issues with hypoxia resolve. Status: Acute (4) Acute blood loss anemia: Status post 2 units PRBC on presentation. Monitor hemoglobin. Hematuria as above. Monitor hemoglobin. Coumadin on hold. Anemia with hematuria, possible cystitis for which he was prescribed antibiotic by PCP on Tuesday. Status: Acute (5) Colitis with rectal bleeding: Hemoccult had been requested. Remains on collected due to constipation. Discussed findings of CT scan with thickening of cecum. Currently on Zosyn. Will need colonoscopy after empiric treatment for possible colitis to also rule out malignancy. Status: Acute (6) Abnormality of heart valve: Incidentally noted small fluttering mitral valve structure attached to anterior mitral leaflet could be artifact/calcification or less likely vegetation. She has not been septic. Blood cultures collected. Suspicion for active vegetation is rather low. Could be closer assessed by LUZ MARIA in addition to other valvular abnormalities. Unclear whether this may have had any relation to her prior CVA. 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 Severe mitral stenosis noted with valve area 0.97 cm. Mean gradient 9 mmHg. Patient sister states patient previously was firm she would not want any major surgery. She is not sure about something like valvuloplasty for mitral valve stenosis. This may be evaluated more closely once acute issues with hypoxia, pneumonia, aspiration may be sorted. Status: Acute (8) Mitral regurgitation: Mild to moderate Status: Acute (9) Pulmonary hypertension: Likely cardiogenic secondary to above abnormalities, although does have also noted emphysema. Status: Acute (10) Cardiomegaly: Quite significant left atrial enlargement noted on TTE. Status: Acute Additional A&P Information A. fib without RVR Hold Coumadin and digoxin. Dig level back to therapeutic range. Resumed digoxin with every other day dosing. Hyponatremia: Sodium 150. With generalized weakness. Hold off additional diuresis for now. Very gentle IV hydration 30 cc/h D5W. Monitor. Will request with pharmacy to see if infusions can be changed to D5. Acute kidney injury: Creatinine up to 1.3. Did receive more aggressive diuresis due to worsening hypoxia. Hold off additional diuretic for now. Very gentle IV fluid challenge for hypernatremia, LENNY. Monitor hypoxia. Reassess renal function. Monitor dig level. May need to hold if renal function worsening. Hypertension: I would avoid adding losartan for now, hold hydrochlorothiazide Type 2 diabetes: Low-dose sliding scale, Constipation: Added bowel regimen. Has had a few bowel movements. Incidentally noted urinary bladder calcifications. All associated conditions discussed with patient and her sister today again. Full code DVT prophylaxis SCDs Attestations Medical Necessity Statement*: Continue admission for assessment of management of hypoxic respiratory failure, aspiration pneumonia, dysphagia, valvular heart abnormality, pulmonary hypertension, hematuria, colitis versus possible cecal malignancy and a number of other comorbidities as above. Coding Level of Care Code Acute Histology Aide for [facility] Fwd Diagnoses Aspiration pneumonia J69.0 Acute respiratory failure with hypoxia J96.01 Hematuria R31.9 Acute blood loss anemia D62 Colitis with rectal bleeding K52.9; K62.5 Abnormality of heart valve Q24.8 Mitral stenosis I05.0 Mitral regurgitation I34.0 Pulmonary hypertension I27.20 Cardiomegaly I51.7
[2020-11-16] VITALS (9 sets, daily range): BP systolic 150–174; BP diastolic 78–85; PULSE 86–110; RESP 18–40; TEMP 36.8–38.3; O2SAT 90–99
[2020-11-16 06:30] LABS: Basophils % 0.2 %; Hematocrit 33.4 % (37.0-47.0); Hemoglobin 9.7 g/dL (11.5-15.3); Lymphocytes # 1.5 10^3/uL (0.8-4.8); Lymphocytes % 8.5 %; Mean Corpuscular Hemoglobin 27.8 pg (28.0-34.0); Mean Corpuscular Volume 95.7 fL (81-99); Mean Platelet Volume 10.7 fL (7.4-10.4); Monocytes # 0.5 10^3/uL (0.2-0.9); Monocytes % 2.8 %; Neutrophils # 15.13 10^3/uL (1.8-7.7); Neutrophils % 87.1 %; Nucleated Red Blood Cells % 0 %; Platelet Count 139 10^3/cmm (130-400); Red Blood Count 3.49 10^6/uL (4.1-5.3); Red Cell Distribution Width 18.8 % (12.1-15.1); White Blood Count 17.4 10^3/uL (4.0-10.0)
[2020-11-16 06:54] LABS: Alanine Aminotransferase 17 U/L (0-33); Albumin Level 2.6 g/dL (3.5-5.2); Alkaline Phosphatase 129 IU/L (35-105); Aspartate Amino Transferase 26 U/L (0-32); Blood Urea Nitrogen 43 mg/dL (8-23); Calcium 8.9 mg/dL (8.5-10.5); Carbon Dioxide 24 mmol/L (22-29); Chloride 116 mmol/L (98-107); Glucose 202 mg/dL (65-115); Osmolality Calculated 331 mOsm/kg (285-295); Sodium 152 mmol/L (136-145); Total Bilirubin 2.1 mg/dL (0.15-1.2); Total Protein 7.6 g/dL (6.6-8.7)
[2020-11-16 10:40] LABS: Glucose Point of Care 215 mg/dL (70-110)
[2020-11-16 12:40] LABS: Glucose Point of Care 155 mg/dL (70-110)
[2020-11-16] MEDS: amlodipine 5 mg Tablet PO (14:51)
--- NOTE | 2020-11-16 17:14 | PM.PN ---
Subjective Subjective: Interval history: Blood pressure elevated to 170 systolic today, improved with giving amlodipine 5 mg. Awaiting modified barium swallow tomorrow. Respiratory status continues to be stable between yesterday and today. Medications: Reviewed: Yes Vitals/I&O/Wt Last Vital Signs Temp 99.0 F 11/16/20 16:00 Pulse 110 H 11/16/20 16:00 Resp 20 H 11/16/20 16:00 BP 157/80 11/16/20 16:00 Pulse Ox 90 11/16/20 16:00 11/16/20 11/16/20 11/16/20 06:59 14:59 22:59 Intake Total 150 / 150 Output Total 150 / 750 Balance -150 / -650 150 / 150 Physical Exam Narrative: EXAM NARRATIVE: GEN: Awake, alert and oriented, no acute distress CVS: S1S2 N RS: Bilateral scattered crackles to auscultation Abd: Soft, nt/nd , bs+ TELECOMMUNICATOR: no focal neuro deficits Urinary Catheter Management^: Alegria: Cath Placed During This Visit: yes Reason for Continuing Indwelling Catheter: Acute Urinary Retention or Obstruction Urinary Catheter Date of Insertion: 11/13/20 Urinary Catheter Time of Insertion: 02:35 Data : 11/16/20 06:08 11/16/20 06:08 A&P Assessment and plan (1) Aspiration pneumonia: Last night with worsening of hypoxia. Received a few doses of Lasix. Chest x-ray showing worsening infiltrate in right lower lobe. Discussed with her and her sister concern that after or during dinner she had yesterday she had some point aspirated again. Sister states she has been having difficult time coughing and bringing up secretions. She did get nasotracheal suctioning overnight. Discussed with her sister unfortunately her prognosis does not look good. Concern is that she is not able to adequately protect her airway. Sister has been asking about food and drink, however, they are agreeable at this time to continue n.p.o. due to persistent risk of aspiration. If her oxygenation stabilizes somewhat, and if we are able to obtain modified barium swallow evaluation, this may help us determine if there is a safe level of diet, although so far. She has not done well even with pudding thick liquids with dysphagia diet. Discussed with her and her sister if she does not improve regarding options with consideration given to PEG tube and tracheostomy, versus pleasure feeds. Certainly dysphagia has progressed since her last CVA. Unclear whether there may have been additional CVA versus progression with weakness associated with general medical condition. Sister understands that she is certainly at continuous risk of CVA due to mobile mass on mitral valve, but also atrial fibrillation, currently off anticoagulation. Discussed with her sister that she is at very high risk of decompensation and further decline with potentially fatal outcome. Sister states she understands. They are agreeable at this time to continue treatment of aspiration pneumonia, oxygen support. N.p.o. for now. Gentle IV hydration for hypernatremia. Aggressive pulmonary toilet. We will add flutter valve. Incentive spirometer. Continue speech therapy. Overnight her CODE STATUS was changed to AND. Also noted elevated BNP, however, this is suspected likely due to significant valvular abnormality. For now hold off additional diuretic, reassess volume status with diuretic as needed. MBS has not been available due to holiday. FEES was performed with limited study. Noted quite a bit of pooling in the valleculae. Is at risk of aspiration. Consider MBS once study is available. Suspicion of recurrent aspiration in the past, possibly leading to findings of chronic lung disease/emphysema. She is a never smoker. She does have recurrent difficulties with swallowing for sister however since she has had a stroke. Continue Zosyn. Status: Acute (2) Acute respiratory failure with hypoxia: As above. Status: Acute (3) Hematuria: Some fluctuation in hematuria. Currently better. Hold off on resuming warfarin for now. Discussed manual irrigation with nursing staff. Monitor. Continue treatment of possible UTI/cystitis. Continue Zosyn. Consider urological evaluation once issues with hypoxia resolve. Status: Acute (4) Acute blood loss anemia: Status post 2 units PRBC on presentation. Monitor hemoglobin. Hematuria as above. Monitor hemoglobin. Coumadin on hold. Anemia with hematuria, possible cystitis for which he was prescribed antibiotic by PCP on Tuesday. Status: Acute (5) Colitis with rectal bleeding: Hemoccult had been requested. Remains on collected due to constipation. Discussed findings of CT scan with thickening of cecum. Currently on Zosyn. Will need colonoscopy after empiric treatment for possible colitis to also rule out malignancy. Status: Acute (6) Abnormality of heart valve: Incidentally noted small fluttering mitral valve structure attached to anterior mitral leaflet could be artifact/calcification or less likely vegetation. She has not been septic. Blood cultures collected. Suspicion for active vegetation is rather low. Could be closer assessed by LUZ MARIA in addition to other valvular abnormalities. Unclear whether this may have had any relation to her prior CVA. 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 Severe mitral stenosis noted with valve area 0.97 cm. Mean gradient 9 mmHg. Patient sister states patient previously was firm she would not want any major surgery. She is not sure about something like valvuloplasty for mitral valve stenosis. This may be evaluated more closely once acute issues with hypoxia, pneumonia, aspiration may be sorted. Status: Acute (8) Mitral regurgitation: Mild to moderate Status: Acute (9) Pulmonary hypertension: Likely cardiogenic secondary to above abnormalities, although does have also noted emphysema. Status: Acute (10) Cardiomegaly: Quite significant left atrial enlargement noted on TTE. Status: Acute Additional A&P Information A. fib without RVR Hold Coumadin and digoxin. Dig level back to therapeutic range. Resumed digoxin with every other day dosing. Hyponatremia: Sodium 150. With generalized weakness. Hold off additional diuresis for now. Very gentle IV hydration 30 cc/h D5W. Monitor. Will request with pharmacy to see if infusions can be changed to D5. Acute kidney injury: Creatinine up to 1.3. Did receive more aggressive diuresis due to worsening hypoxia. Hold off additional diuretic for now. Very gentle IV fluid challenge for hypernatremia, LENNY. Monitor hypoxia. Reassess renal function. Monitor dig level. May need to hold if renal function worsening. Hypertension: I would avoid adding losartan for now, hold hydrochlorothiazide Type 2 diabetes: Low-dose sliding scale, Constipation: Added bowel regimen. Has had a few bowel movements. Incidentally noted urinary bladder calcifications. All associated conditions discussed with patient and her sister today again. 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
[2020-11-16 17:53] LABS: Glucose Point of Care 152 mg/dL (70-110)
[2020-11-16 19:42] LABS: SARS Covid-2 Antigen Negative (Negative)
[2020-11-16 21:50] LABS: Glucose Point of Care 131 mg/dL (70-110)
[2020-11-17] VITALS (9 sets, daily range): BP systolic 130–150; BP diastolic 64–80; PULSE 83–90; RESP 14–24; TEMP 36.4–37.4; O2SAT 93–96
[2020-11-17 06:51] LABS: Glucose Point of Care 164 mg/dL (70-110)
[2020-11-17] MEDS: potassium chloride ER 20 mEq Tablet PO (09:34)
[2020-11-17] MEDS: digoxin 125 mcg Tablet PO (09:34)
--- NOTE | 2020-11-17 10:02 | FL_ITS ---
WS: [id number] MODIFIED BARIUM SWALLOW TECHNIQUE: Modified barium swallow with speech therapy using multiple consistencies. FLUOROSCOPY TIME: 1.5 minutes. CLINICAL INFORMATION: Oropharyngeal dysphagia COMPARISON: None. FINDINGS: Patient unable to swallow any significant consistency. Pudding and nectar consistencies attempted. Ti ny amount of nectar consistency was swallowed with no visualized aspiration. FL/FL barium swallow modifd [id number] IMPRESSION: Patient unable to swallow any significant volume of liquid. Please see speech t herapy note for further detail.
--- NOTE | 2020-11-17 10:56 | PC.SOCIAL ---
IMM Update Pg. 2 of IMM updated and reviewed with patient's sister at bedside. Verbalized understanding. Copy provided.
[2020-11-17 12:25] LABS: Glucose Point of Care 158 mg/dL (70-110)
--- NOTE | 2020-11-17 18:00 | P.PN_ITS ---
Subjective Subjective: Interval history: Underwent MBS earlier today which showed Patient unable to swallow any significant consistency. 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: no focal neuro deficits Urinary Catheter Management^: Alegria: Cath Placed During This Visit: yes Reason for Continuing Indwelling Catheter: Acute Urinary Retention or Obstruction Urinary Catheter Date of Insertion: 11/13/20 Urinary Catheter Time of Insertion: 02:35 Data : 11/16/20 06:08 11/16/20 06:08 A&P Assessment and plan (1) Aspiration pneumonia: Continue Zosyn for empiric coverage failed multiple swallow evalutaions and unable to swallow any consistency with MBS today Had extensive discussion with sister, nephew and latter's today evening, options going forward include PEG for feeding options, which per sister is not in keeping with patient's wishes vs transition to palliative measures, Her sister will be discussing this further with other family members today and make a decision. Status: Acute (2) Acute respiratory failure with hypoxia: As above. Status: Acute (3) Hematuria: Some fluctuation in hematuria. Currently better. Hold off on resuming warfarin for now. Discussed manual irrigation with nursing staff. Monitor. Continue treatment of possible UTI/cystitis. Continue Zosyn. Status: Acute (4) Acute blood loss anemia: Status post 2 units PRBC on presentation. Monitor hemoglobin. Hematuria as above. Monitor hemoglobin. Coumadin on hold. Anemia with hematuria, possible cystitis for which he was prescribed antibiotic by PCP on Tuesday. Status: Acute (5) Colitis with rectal bleeding: Discussed findings of CT scan with thickening of cecum. Currently on Zosyn. Will need colonoscopy after empiric treatment for possible colitis to also rule out malignancy if in keeping with overall GOC. Status: Acute (6) Abnormality of heart valve: Incidentally noted small fluttering mitral valve structure attached to anterior mitral leaflet could be artifact/calcification or less likely vegetation. She has not been septic. Blood cultures collected. Suspicion for active vegetation is rather low. Could be closer assessed by LUZ MARIA in addition to other valvular abnormalities. Unclear whether this may have had any relation to her prior CVA. 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 Severe mitral stenosis noted with valve area 0.97 cm. Mean gradient 9 mmHg. Patient sister states patient previously was firm she would not want any major surgery. She is not sure about something like valvuloplasty for mitral valve stenosis. This may be evaluated more closely once acute issues with hypoxia, pneumonia, aspiration may be sorted. Status: Acute (8) Mitral regurgitation: Mild to moderate Status: Acute (9) Pulmonary hypertension: Likely cardiogenic secondary to above abnormalities, although does have also noted emphysema. Status: Acute (10) Cardiomegaly: Quite significant left atrial enlargement noted on TTE. Status: Acute Additional A&P Information A. fib without RVR Hold Coumadin and digoxin. Dig level back to therapeutic range. Resumed digoxin with every other day dosing. Hyponatremia: Sodium 150. With generalized weakness. Hold off additional diur esis for now. Very gentle IV hydration 30 cc/h D5W. Monitor. Will request with pharmacy to see if infusions can be changed to D5. Acute kidney injury: Creatinine up to 1.3. Did receive more aggressive diuresis due to worsening hypoxia. Hold off additional diuretic for now. Very gentle IV fluid challenge for hypernatremia, LENNY. Monitor hypoxia. Reassess renal function. Monitor dig level. May need to hold if renal function worsening. Hypertension: I would avoid adding losartan for now, hold hydrochlorothiazide Type 2 diabetes: Low-dose sliding scale, Constipation: Added bowel regimen. Has had a few bowel movements. Incidentally noted urinary bladder calcifications. All associated conditions discussed with patient and her sister today again. 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
[2020-11-17 18:06] LABS: Glucose Point of Care 156 mg/dL (70-110)
[2020-11-17 22:03] LABS: Glucose Point of Care 150 mg/dL (70-110)
[2020-11-17] MEDS: dextrose 5% 1,000 ML 30 ML IV (23:27)
[2020-11-17] MEDS: morphine 4 mg/mL SDV 1 mL IVP (23:28)
[2020-11-18] VITALS (9 sets, daily range): BP systolic 109–133; BP diastolic 55–73; PULSE 71–97; RESP 16–40; TEMP 36.4–37.8; O2SAT 90–98
[2020-11-18 06:50] LABS: Alanine Aminotransferase 21 U/L (0-33); Albumin Level 2.3 g/dL (3.5-5.2); Alkaline Phosphatase 121 IU/L (35-105); Anion Gap 14.8 (5-19); Aspartate Amino Transferase 42 U/L (0-32); Blood Urea Nitrogen 64 mg/dL (8-23); Calcium 8.9 mg/dL (8.5-10.5); Carbon Dioxide 25 mmol/L (22-29); Chloride 121 mmol/L (98-107); Globulin 4.5 g/dL (1.3-4.6); Glucose 155 mg/dL (65-115); Osmolality Calculated 345 mOsm/kg (285-295); Potassium 3.8 mmol/L (3.5-5.1); Sodium 157 mmol/L (136-145); Total Bilirubin 1.4 mg/dL (0.15-1.2); Total Protein 6.8 g/dL (6.6-8.7)
[2020-11-18 06:53] LABS: Glucose Point of Care 147 mg/dL (70-110)
[2020-11-18] MEDS: polyethylene glycol 3350 Pkt 17 gm PO (11:35)
[2020-11-18] MEDS: potassium chloride ER 20 mEq Tablet PO (11:35)
[2020-11-18 11:43] LABS: Glucose Point of Care 120 mg/dL (70-110)
--- NOTE | 2020-11-18 15:15 | PM.PN ---
Subjective Subjective: Interval history: Patient continues to have temperature up to 100 Fahrenheit, hypernatremia worsening at 157, kidney function additionally worsening today at 2.1, urine output at 350 cc over the last 24 hours, blood pressure stable hemoglobin stable at 9.7. CBC not available from today. Medications: Reviewed: Yes Vitals/I&O/Wt Last Vital Signs Temp 97.5 F L 11/18/20 10:46 Pulse 71 11/18/20 10:46 Resp 18 11/18/20 10:46 BP 109/55 11/18/20 10:46 Pulse Ox 95 11/18/20 10:46 11/18/20 11/18/20 11/18/20 06:59 14:59 22:59 Intake Total 100 / 540 Output Total 350 / 350 Balance -250 / 190 Physical Exam Narrative: EXAM NARRATIVE: GEN: Awake, chronically ill-appearing malnourished lady in no apparent acute distress CVS: S1S2 N RS: Bilateral scattered rails to auscultation right greater than left Abd: Soft, nt/nd , bs+ Urinary Catheter Management^: Alegria: Cath Placed During This Visit: yes Reason for Continuing Indwelling Catheter: Acute Urinary Retention or Obstruction Urinary Catheter Date of Insertion: 11/13/20 Urinary Catheter Time of Insertion: 02:35 Data : 11/16/20 06:08 11/18/20 06:17 A&P Additional A&P Information Zonia Saab is a 80 year old male with a past medical history of atrial fibrillation on chronic anticoagulation with Coumadin, hypertension, type 2 diabetes mellitus, 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 Diagnostics in the ER revealed supratherapeutic INR 6.3, hemoglobin 7.1, received 1 unit RBC and 1 unit FFP in the ER along with vitamin K. Hospital course has been complicated by the development of acute hypoxic respiratory failure secondary to aspiration. #Supratherapeutic INR and likely urinary source of bleeding Coumadin has been on hold since admission Alegria catheter was placed at admission, initially with hematuria, this is now resolved. CT of the abdomen showed atrophic uterus with no pelvic masses, this likely to be gynecological source, large bladder calcifications were seen measuring 2.4 x 1.9 cm. Note was also made of mild diffuse thickening of the cecum measuring 7 mm, likely colitis versus early neoplasm. No obstruction was noted. Fecal occult blood testing is positive on 1225. She received 1 unit of blood transfusion upon admission and hemoglobin is improved at 9.7 now. #Acute respiratory failure with hypoxia developed overnight on 11/15/2020, likely as a result of aspiration event. Patient continues to spike intermittent low-grade fever since then in spite of being on appropriate coverage with piperacillin tazobactam. Leukocytosis at 17.4 Chest x-ray on 122 with emphysematous change and bilateral lower lobe airspace disease with left pleural effusion. On 1224 again noted to have bibasilar pneumonia worsened on the right possibly as a result of aspiration. Concern for dysphagia for which patient has undergone multiple swallow evaluations. She has shown limited attempts at oral manipulation with poor bolus control. Most of the food and liquid remains in her mouth, no functional propulsion was noted through the oral cavity. Modified barium swallow was additionally performed on 1227 which showed that patient is unable to swallow any significant volume of liquid and nectar consistencies. She remains at a high risk of aspiration with any attempts at feeding. This was extensively discussed with her family including her sister, nephew and nephew's who are directly involved in patient care. Also discussed that patient would need a definitive way of getting calories and nutrition which would involve placement of a PEG tube. Patient sister who has been her primary oceanography professor states that patient has refused placement of any artificial feeding tubes in the past and is continuing to do so even at this present time. She does understand that any attempts at feeding would make her high risk of aspiration and recurrent pneumonias but is leaning towards pleasure feeding. She does wish to have a conversation with several other family members and we are awaiting a final decision in this regard. #Sepsis as evidenced by leukocytosis, fever, hypoxic respiratory failure and source of infection by way of aspiration pneumonia, developed during the course of admission. #History of CVA with generalized weakness and dysphagia #Atrial fibrillation, mobile mass noted on mitral valve, currently off anticoagulation which makes her extremely high risk of recurrent CVA. It has been discussed on multiple occasions that patient is at very high risk of decompensation and further decline with a potentially fatal outcome. As such we cannot safely recommend the resumption of Coumadin without first undergoing colonoscopy and cystoscopy as it may put her at a risk of potentially fatal bleeding, however patient sister states that these are invasive measures that the patient would not want. She wants to discuss this more with her family members. Family meeting has been arranged for today in addition to the one already done last evening. #Hypernatremia, likely to be as a result of poor p.o. intake, n.p.o. status and dehydration as evidenced also by high serum osmolality. Resume d51/2 NS @75cc/hr, recheck with am labs # LENNY, as a result of dehydration, poor po intake Disposition is pending family meeting and discussion regarding goals of care. Sister appears to be conflicted at this present time, and declining PEG tube placement and invasive procedures in keeping with patient's wishes, however has a hard time understanding the concept that continued attempts to feed her evening for comfort to, the risk of high risk of aspiration. She continues to believe that antibiotics and recurrent feeding trials could make her better, although it has been explained that it is unlikely to add any meaningful quality of life. She is awaiting her family members to come in this evening to discuss further. 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
[2020-11-18 16:19] LABS: Basophils % 0.1 %; Eosinophils % 0.1 %; Hematocrit 32.4 % (37.0-47.0); Hemoglobin 9.2 g/dL (11.5-15.3); Lymphocytes # 1.8 10^3/uL (0.8-4.8); Lymphocytes % 11.2 %; Mean Corpuscular HGB Conc 28.4 g/dL (30.0-36.0); Mean Corpuscular Hemoglobin 28.6 pg (28.0-34.0); Mean Corpuscular Volume 100.6 fL (81-99); Mean Platelet Volume 11.5 fL (7.4-10.4); Monocytes # 0.4 10^3/uL (0.2-0.9); Monocytes % 2.6 %; Neutrophils # 13.93 10^3/uL (1.8-7.7); Neutrophils % 85.4 %; Nucleated Red Blood Cells % 0 %; Platelet Count 163 10^3/cmm (130-400); Red Blood Count 3.22 10^6/uL (4.1-5.3); Red Cell Distribution Width 18.3 % (12.1-15.1); White Blood Count 16.3 10^3/uL (4.0-10.0)
[2020-11-18 17:05] LABS: Glucose Point of Care 215 mg/dL (70-110)
[2020-11-18 22:05] LABS: Glucose Point of Care 203 mg/dL (70-110)
[2020-11-18] MEDS: FUROsemide 10 mg/mL SDV 4mL 20 MG IVP (23:03)
[2020-11-18] MEDS: ipratropium-albuterol 3 mL Neb INHALATION (23:57)
[2020-11-19 00:04] VITALS: PULSE 87
--- NOTE | 2020-11-19 00:22 | PC.NURSE ---
THIS NURSE ENTERED THE PATIENT ROOM AT APPROXIMATELY 2230 TO FIND THE PATIENT HAVING RESPIRATORY DISTRESS. RESPIRATIONS WERE AGONAL AND JUVENAL-BARRIENTOS. LUNG SOUNDS WERE AUSCULTATED AND THERE WAS MINIMAL AIR MOVEMENT, EXPIRATORY WHEEZING, PLEURAL RUB, AND SOUNDED COARSE. GEOLOGY TEACHER HOSPITALIST CONSULTED AND INFORMED OF CONDITION. THIS NURSE, CHARGE NURSE, AND DR. LAIRD WENT TO BEDSIDE TO EVALUATE PATIENT. THERE IS A LANGUAGE BARRIER WITH THE PATIENT'S FAMILY, SO AN ELECTRONIC ACQUISITIONS ANALYST WAS USED. DURING THIS TIME RESPIRATORY WAS IN THE ROOM SETTING UP AVAPS FOR THE PATIENT TO RELIEVE SOME OF THE WORK BEING EXERTED BY THE PATIENT. THE SISTER'S SON WAS CONSULTED FOR CLEARER TRANSLATION AND DISCUSSION OF CURRENT CARE. THE PHYSICIAN EXPLAINED TO THE FAMILY MEMBER THAT THE PATIENT IS DECLINING QUICKLY AND MOST LIKELY WOULD NOT MAKE IT THROUGH THE NIGHT WITHOUT INTERVENTION. FAMILY APPROVED OF CONTINUING WITH AVAPS AND KEEPING HER COMFORTABLE. COMFORT CARE WAS EXPLAINED IN DEPTH AND QUESTIONS ANSWERED, THE FAMILY STATED UNDERSTANDING. THEY REPORT THEY WOULD LIKE TO CONTINUE WITH THE CURRENT COURSE OF TREATMENT AND WILL DISCUSS THE OPTIONS A FAMILY AND MAKE A DECISION ABOUT POSSIBLE TRANSITION OF CARE TOMORROW.
[2020-11-19 00:41] VITALS: RESP 30; O2SAT 97
[2020-11-19 02:25] VITALS: RESP 32; O2SAT 96
[2020-11-19 06:03] VITALS: RESP 34; O2SAT 95
[2020-11-19] MEDS: dextrose 5%-sod chloride 0.45% 1,000 ML 75 ML IV (06:47)
[2020-11-19 09:25] VITALS: PULSE 87; RESP 34; O2SAT 94
[2020-11-19 09:27] VITALS: RESP 20; O2SAT 95
[2020-11-19] MEDS: morphine 4 mg/mL SDV 1 mL 2 MG IVP (09:27)
--- NOTE | 2020-11-19 11:53 | PC.SOCIAL ---
IMM Update Pg. 2 of [facility] updated and reviewed with patient who verbalized understanding, copy provided.
--- NOTE | 2020-11-19 11:54 | PC.SOCIAL ---
IMM Update Pg. 2 of IMM updated and reviewed with patient's sister at bedside, who verbalized understanding.
--- NOTE | 2020-11-19 12:20 | PM.PN ---
Subjective Subjective: Interval history: Overnight events noted. Patient was placed on AVAPS after being noted to have agonal breathing. Per extensive discussion with patient's family that was at bedside last evening and again over the phone this morning including her sister, nephew and nephew's . Discussed again this morning that the goals of care are maximizing patient's comfort, it is inappropriate to continue her on noninvasive ventilator with AVAPS. Patient's sister did refuse all labs this morning stating that patient is now comfort care however does have a difficult time understanding that comfort measures would probably only involve oxygen and noninvasive ventilation is unlikely to add any meaningful quality of life. She is in agreement at this time and patient has been transitioned back to nasal cannula. Morphine additionally added for air hunger. Ativan added for patient anxiety. Patient does not indicate any pain at this time, however does wince on abdominal exam. Medications: Reviewed: Yes Vitals/I&O/Wt Last Vital Signs Temp 98.6 F 11/18/20 20:00 Pulse 87 11/19/20 09:25 Resp 20 H 11/19/20 09:27 BP 124/57 11/18/20 20:00 Pulse Ox 95 11/19/20 09:27 11/18/20 11/19/20 11/19/20 22:59 06:59 14:59 Intake Total 100 / 100 Output Total 0 / 0 350 / 350 Balance 100 / 100 -350 / -250 Physical Exam Narrative: EXAM NARRATIVE: GEN: Awake, able to indicate pain by advancing, respiration is labored this morning and tending to become shallower. She does appear comfortable after being given morphine. CVS: S1S2 N RS: Bilateral crackles to auscultation right greater than left Abd: Soft, nt/nd , tender to palpation all over. Urinary Catheter Management^: Alegria: Cath Placed During This Visit: yes Reason for Continuing Indwelling Catheter: Acute Urinary Retention or Obstruction Urinary Catheter Date of Insertion: 11/13/20 Urinary Catheter Time of Insertion: 02:35 Data : 11/18/20 06:17 11/18/20 06:17 Micro: Microbiology 11/14/20 10:27 Blood Culture - Final Blood NO GROWTH AFTER 5 DAYS 11/14/20 10:23 Blood Culture - Final Blood NO GROWTH AFTER 5 DAYS A&P Assessment and plan (1) Aspiration pneumonia: Status: Acute (2) Acute respiratory failure with hypoxia: As above. 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 Diagnostics in the ER revealed supratherapeutic INR 6.3, hemoglobin 7.1, received 1 unit RBC and 1 unit FFP in the ER along with vitamin K. Hospital course has been complicated by the development of acute hypoxic respiratory failure secondary to aspiration. #Supratherapeutic INR and likely urinary source of bleeding Coumadin has been on hold since admission. Alegria catheter was placed at admission, initially with hematuria, this is now resolved. CT of the abdomen showed atrophic uterus with no pelvic masses, this likely to be gynecological source, large bladder calcifications were seen measuring 2.4 x 1.9 cm. Note was also made of mild diffuse thickening of the cecum measuring 7 mm, likely colitis versus early neoplasm. No obstruction was noted. Fecal occult blood testing is positive on 11/14. She received 1 unit of blood transfusion upon admission and hemoglobin is improved at 9.7 now. #Acute respiratory failure with hypoxia developed overnight on 11/15/2020, likely as a result of aspiration event. Patient continues to spike intermittent low-grade fever since then in spite of being on appropriate coverage with piperacillin tazobactam. Leukocytosis at 17.4 Chest x-ray on 1223 with emphysematous change and bilateral lower lobe airspace disease with left pleural effusion. On 1224 again noted to have bibasilar pneumonia worsened on the right possibly as a result of aspiration. Concern for dysphagia for which patient has undergone multiple swallow evaluations. She has shown limited attempts at oral manipulation with poor bolus control. Most of the food and liquid remains in her mouth, no functional propulsion was noted through the oral cavity. Modified barium swallow was additionally performed on 1228 which showed that patient is unable to swallow any significant volume of liquid and nectar consistencies. She remains at a high risk of aspiration with any attempts at feeding. This was extensively discussed with her family including her sister, nephew and nephew's who are directly involved in patient care. Also discussed that patient would need a definitive way of getting calories and nutrition which would involve placement of a PEG tube. Patient sister who has been her primary tie knitter helper states that patient has refused placement of any artificial feeding tubes in the past and is continuing to do so even at this present time. She does understand that any attempts at feeding would make her high risk of aspiration. Overnight she decompensated further, had agonal breathing, goals of care addressed extensively this morning and last evening at bedside and she has now been transitioned to comfort care measures only. Explained to sister in detail that temporary AVAPS/Bipap is not going to add any meaningful quality of life and likely not comfortable for the patient. Placed back on NC now, morphine and ativanm added. sister requests to continue abx, even though unlikely to be of any benefit. #Sepsis as evidenced by leukocytosis, fever, hypoxic respiratory failure and source of infection by way of aspiration pneumonia, developed during the course of admission. #History of CVA with generalized weakness and dysphagia #Atrial fibrillation, mobile mass noted on mitral valve, currently off anticoagulation which makes her extremely high risk of recurrent CVA. It has been discussed on multiple occasions that patient is at very high risk of decompensation and further decline with a potentially fatal outcome. As such we cannot safely recommend the resumption of Coumadin without first undergoing colonoscopy and cystoscopy as it may put her at a risk of potentially fatal bleeding, however patient sister states that these are invasive measures that the patient would not want. Family meeting multiple days- transitioined to comfort care. #Hypernatremia, likely to be as a result of poor p.o. intake, n.p.o. status and dehydration as evidenced also by high serum osmolality. Resume d51/2 NS @50cc/hr, per family request. 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
[2020-11-20] MEDS: dextrose 5%-sod chloride 0.45% 1,000 ML 30 ML IV (08:28)
--- NOTE | 2020-11-20 09:50 | P.DS_ITS ---
Discharge Providers Date of Admission: 11/12/20 17:11 Date of Discharge: November 26, 2020 Attending Provider at Admission: Dionne Mosqueda MD Attending Provider at Discharge: Dionne Mosqueda MD Primary Care Provider: Lloyd Stanley DO Diagnoses at Discharge Discharge Diagnosis (1) Aspiration pneumonia: Status: Acute (2) Acute respiratory failure with hypoxia: Status: Acute (3) Hematuria: Status: Acute (4) Acute blood loss anemia: Status: Acute (5) Colitis with rectal bleeding: Status: Acute (6) Abnormality of heart valve: Status: Acute (7) Mitral stenosis: Status: Acute (8) Mitral regurgitation: Status: Acute (9) Pulmonary hypertension: Status: Acute (10) Cardiomegaly: Status: Acute Reason for Visit Reason for Visit: Abd pain Hospital Course Hospital Course Zonia Saab is a 80 year old male with a past medical history of atrial fibrillation on chronic anticoagulation with Coumadin, hypertension, type 2 diabetes mellitus, history of CVA with significant residual neurological deficits including dysphagia and aphasia presented to the hospital on November 12 with chief complaints of bleeding in her diaper, presumably from a urinary source. Diagnostics in the ER revealed supratherapeutic INR 6.3, hemoglobin 7.1, received 1 unit RBC and 1 unit FFP in the ER along with vitamin K. Hospital course has been complicated by the development of acute hypoxic respiratory failure secondary to aspiration. Notable course as below: She was eventually transitioned to comfort care and discharged home under the care of her sister. Family declined hospice services, stating they will follow up with PCP should they need it a later time. #Supratherapeutic INR and likely urinary source of bleeding Coumadin has been on hold since admission. Alegria catheter was placed at admission, initially with hematuria, this is now resolved. CT of the abdomen showed atrophic uterus with no pelvic masses, this likely to be gynecological source, large bladder calcifications were seen measuring 2.4 x 1.9 cm. Note was also made of mild diffuse thickening of the cecum measuring 7 mm, likely colitis versus early neoplasm. No obstruction was noted. Fecal occult blood testing is positive on 11/14. She received 1 unit of blood transfusion upon admission and hemoglobin stable at 9.7 now. #Acute respiratory failure with hypoxia developed overnight on 11/15/2020, likely as a result of aspiration event. Patient continues to spike intermittent low-grade fever since then in spite of being on appropriate coverage with piperacillin tazobactam. Leukocytosis at 17.4 Chest x-ray on 1224 with emphysematous change and bilateral lower lobe airspace disease with left pleural effusion. On 1225 again noted to have bibasilar pneumonia worsened on the right possibly as a result of aspiration. Concern for dysphagia for which patient has undergone multiple swallow evaluations. She has shown limited attempts at oral manipulation with poor bolus control. Most of the food and liquid remains in her mouth, no functional propulsion was noted through the oral cavity. Modified barium swallow was additionally performed on 1228 which showed that patient is unable to swallow any significant volume of liquid and nectar consistencies. She remains at a high risk of aspiration with any attempts at feeding. This was extensively discussed with her family including her sister, nephew and nephew's who are directly involved in patient care. Also discussed that patient would need a definitive way of getting calories and nutrition which would involve placement of a PEG tube. Patient sister who has been her primary insurance underwriter for years states that patient has refused placement of any artificial feeding tubes in the past and is continuing to do so even at this present time. She does understand that any attempts at feeding would make her high risk of aspiration. During admission she decompensated further, had agonal breathing, goals of care addressed extensively at bedside with rochelle and she has now been transitioned to comfort care measures only. Explained to sister in detail that temporary AVAPS/Bipap is not going to add any meaningful quality of life and likely not comfortable for the patient. Placed back on NC now, morphine and ativan added. sister requests to continue abx, even though unlikely to be of any benefit. This was discussed multiple times with patient;s sister, her nephew and nephew's .. Patient does not have a . She has one daughter who is estranged and family has been unable to get in touch with her. Patient's sister and sister's children are her primary caregivers. #Sepsis as evidenced by leukocytosis, fever, hypoxic respiratory failure and source of infection by way of aspiration pneumonia, developed during the course of admission. #History of CVA with generalized weakness and dysphagia, gross loss of muscle tone and atrophy #Atrial fibrillation, mobile mass noted on mitral valve, currently off anticoagulation which makes her extremely high risk of recurrent CVA. It has been discussed on multiple occasions that patient is at very high risk of decompensation and further decline with a potentially fatal outcome. As such we cannot safely recommend the resumption of Coumadin without first undergoing colonoscopy and cystoscopy as it may put her at a risk of potentially fatal bleeding, however patient sister states that these are invasive measures that the patient would not want. Family meeting multiple days- transitioined to comfort care. #Hypernatremia, likely to be as a result of poor p.o. intake, n.p.o. status and dehydration as evidenced also by high serum osmolality. # LENNY, as a result of dehydration, poor po intake, continues to worsen # DM: discontinue fingersticks and insulin Disposition : transitioned to comfort care measures and discharged home with sister. 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, does not follow commands Urinary Catheter Management^: Alegria: Cath Placed During This Visit: yes, but has since been removed by the nurse Reason for Continuing Indwelling Catheter: Decision to DC Catheter Urinary Catheter Date of Insertion: 11/13/20 Urinary Catheter Time of Insertion: 02:35 Date Urinary Catheter Removed: 11/20/20 Time Urinary Catheter Discontinued: 15:36 Discharge Data Data Completed and Pending: Completed Studies During Hospitalization Category Date Time Status CT abdomen pelvis w con* [id number] Urge nt Cat Scan 11/12/20 13:41 Completed FL barium swallow modifd 57012 Rout ine Exams 11/17/20 10:02 Completed XR chest 1V lexie ble [id number] Stat Exams 11/13/20 09:44 Completed XR chest 1V lexie ble [id number] Stat Exams 11/14/20 20:10 Completed CV echo complete* [id number] Routine Ultrasound 11/13/20 11:06 Completed US abdomen limite d [id number] Routine Ultrasound 11/15/20 08:20 Completed Vitals: Last Vital Signs Temp 98.6 F 11/18/20 20:00 Pulse 87 11/19/20 09:25 Resp 20 H 11/20/20 15:40 BP 124/57 11/18/20 20:00 Pulse Ox 95 11/20/20 15:40 Discharge Plan Discharge Patient Disposition: Home Condition: Critical Prescriptions: New morphine 10 mg/5 mL solution 5 mg PO Q4H PRN (Reason: air hunger) Qty: 100 RF: 0 Ativan 2 mg/mL solution 1 mg buccal Q12H PRN (Reason: anxiety) Qty: 10 RF: 0 Children's Tylenol 160 mg/5 mL suspension 500 mg PO Q6H PRN (Reason: fever or pain) Qty: 118 RF: 0 Augmentin 250-62.5 mg/5 mL suspension for reconstitution 10 ml PO BID Qty: 100 RF: 0 Discontinued metformin 500 mg tablet 500 mg PO DAILY RF: 0 hydrochlorothiazide 50 mg tablet 50 mg PO DAILY PRN (Reason: Blood Pressure) RF: 0 digoxin 125 mcg (0.125 mg) tablet 125 mcg PO DAILY RF: 0 losartan 100 mg tablet 100 mg PO BID RF: 0 nitrofurantoin monohyd/m-cryst 100 mg capsule 100 mg PO BID RF: 0 Discharge Orders: Discharge Order (Routine); Ordered 11/20/20 Ordered By: Dionne Mosqueda Other Ambulatory Orders: DME: Oxygen (Order) Location: None Selected Ordered By: Dionne Mosqueda DME: Miscellaneous (Order) Location: None Selected Ordered By: Dionne Mosqueda DME: Miscellaneous (Order) Location: None Selected Ordered By: Dionne Mosqueda DME: Oxygen (Order) Location: None Selected Ordered By: Dionne Mosqueda Referrals: Cassidy Nguyen MD [Staff Physician] - (prn if needed ) Discharge Diet: Soft Mechanical Discharge Activity: Increase activity as tolerated and Bedrest Patient Instructions: Acetaminophen (By mouth), Lorazepam (By mouth), Amoxicillin/Clavulanate Potassium (By mouth), Morphine, Rapid Release (By mouth) Discharge Attestations Time Spent in Discharge Care*: greater than 30 min Specific Discharge Activities: educating and/or supporting family/caregiver, discussing with casework specialist/social workers/dc planners, documenting/other paperwork and evaluating patient/reviewing data Status at Discharge: Cognitive status at discharge: severely impaired cognition , Behavioral status at discharge: dependent in ADL's and other , Functional status at discharge: bed bound Overall status at discharge: patient has a new baseline Quality Metrics Clinical Quality Measures During this hospital stay, did patient experience: None Coding Level of Care Code 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
[2020-11-20 13:30] VITALS: O2SAT 85; O2SAT 95
--- NOTE | 2020-11-20 15:37 | PC.NURSE ---
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 Bilateral AC IV's discontinued, covered with 2x2 and secured with tape. Alegria catheter removed with 6cc of NS in balloon. Catheter intact. Patient lethargic through procedure. Transferred to [facility] with assistance of EMS staff. Patient's family member given medications that were delivered by pharmacy. Patient belongings sent with family.
[2020-11-20 15:40] VITALS: RESP 20; O2SAT 95
== END 2020-11-20 15:42 | disposition home or self-care (01) | DRG 813 ==
LOC: ER 16:10 → MEDSURG 18:29
PROVIDERS: Internal Medicine; Admitting Provider Student in an Organized Health Care Education/Training Program; Emergency Provider Family Medicine; PCP Family Medicine; Visit Provider Student in an Organized Health Care Education/Training Program
DX: D68.32 Hemorrhagic disorder due to extrinsic circulating anticoagulants (principal); J69.0 Pneumonitis due to inhalation of food and vomit; J96.01 Acute respiratory failure with hypoxia; J96.02 Acute respiratory failure with hypercapnia; A41.9 Sepsis, unspecified organism; D62 Acute posthemorrhagic anemia; K62.5 Hemorrhage of anus and rectum; J90 Pleural effusion, not elsewhere classified; E87.1 Hypo-osmolality and hyponatremia; E87.0 Hyperosmolality and hypernatremia; N17.9 Acute kidney failure, unspecified; R31.0 Gross hematuria; K52.9 Noninfective gastroenteritis and colitis, unspecified; T45.515A Adverse effect of anticoagulants, initial encounter; I48.91 Unspecified atrial fibrillation; E11.9 Type 2 diabetes mellitus without complications; Z79.01 Long term (current) use of anticoagulants; Z87.440 Personal history of urinary (tract) infections; J43.9 Emphysema, unspecified; I69.391 Dysphagia following cerebral infarction; R13.10 Dysphagia, unspecified; K59.00 Constipation, unspecified; I27.20 Pulmonary hypertension, unspecified; Q24.8 Other specified congenital malformations of heart; I05.2 Rheumatic mitral stenosis with insufficiency; I11.9 Hypertensive heart disease without heart failure; K57.30 Diverticulosis of large intestine without perforation or abscess without bleeding; N32.89 Other specified disorders of bladder; Z66 Do not resuscitate; Z51.5 Encounter for palliative care; I69.320 Aphasia following cerebral infarction
CPT/HCPCS: 12345; 36415; 36416; 36430; 36600; 51702; 71045; 74177; 74230; 76705; 80048; 80051; 80053; 80162; 81001; 82248; 82274; 82330; 82803; 82805; 82962; 83010; 83605; 83615; 83880; 85025; 85610; 86850; 86900; 86920; 86927; 87040; 87086; 87426; 92526; 92611; 92612; 93306; 94640; 94660; 96372; 99283; J1815; J1940; J2270; J2543; J3010; J3430; J3480; J7799; P9016; P9017; Q9967